=== PATIENT | male | born 1960 | race Caucasian/White ===

== ENCOUNTER 2016-09-30 08:01 | Day surgery (SDC) | payer MEDICARE ==
--- NOTE | 2016-09-28 20:06 | HP ---
ADMITTING HISTORY AND PHYSICAL: DATE OF ADMISSION: 09/30/16 ADMITTING DIAGNOSES: 1. Calculus, right proximal ureter. 2. Right hydronephrosis. 3. Bilateral renal calculi. PLANNED PROCEDURE: Right ureteroscopy, possible laser, and stent insertion ( possibly to be followed in near future by lithotripsy). SURGEON: Dr. Pizano. ADMITTING HISTORY AND PHYSICAL: Homar Parra is a 56-year-old gentleman with a history of renal calculi. He had been evaluated a few months ago for an episode of gross hematuria, but workup at that time had been unremarkable. He recently came in and had a renal sonogram, which revealed a 9-mm calculus in the proximal right ureter with mild right hydronephrosis. In addition, he has bilateral renal calculi. PAST MEDICAL HISTORY: Significant for: 1. Recurrent renal calculi. 2. Hypertension. 3. Chronic back and neck pain. 4. Gastroesophageal reflux. MEDICATIONS ON ADMISSION: 1. Amlodipine 10 mg daily. 2. Lisinopril 10 mg daily. 3. Apriso 0.375 g, 1.5 g daily. 4. Robaxin 750 mg up to two times daily as needed for neck pain. 5. Omeprazole 1 capsule daily. 6. Oxycodone 1 tablet every 4 hours as needed p.r.n. for pain. 7. Protonix 20 mg 2 tablets daily. 8. Zoloft 50 mg daily. 9. Trazodone 50 mg at bedtime daily. ALLERGIES: No known drug allergies. PHYSICAL EXAMINATION GENERAL: Reveals a pleasant middle-aged gentleman. VITAL SIGNS: Blood pressure is 140/98, pulse 72 per minute, oxygen saturation 94%, temperature 96.4. LUNGS: Clear bilaterally. CARDIOVASCULAR: Regular rate and rhythm. S1 and S2. ABDOMEN: Soft with mild right flank tenderness. IMPRESSION: A 56-year-old gentleman with a 9-mm calculus in the right proximal ureter and bilateral renal calculi. PLAN: Planned procedure is right ureteroscopy, possible laser, and stent insertion (possibly to be followed in near future by lithotripsy). CC: Dr. Hardy Crespo; Dr. Junior Pizano * [id number]/[facility] #: [id number] [facility]
[~2016-09-30 08:01] MED LIST: Buffered Lidocaine 1% SYR 3ML* 3 ML/SYR SYRINGE INTRADERM ONE; Dexamethasone IV* 4 MG/ML 1 ML (4 MG) IV SLOW PU ONE; Dexamethasone IV* 4 MG/ML 1 ML (4 MG) ONE; Famotidine IV* 10 MG/ML 2 ML (20 mg) IV ONE; Famotidine IV* 10 MG/ML 2 ML (20 mg) ONE; HYDROmorphone INJ* 1 MG/ML CARPUJECT SYRINGE ONE; Iohexol 180 (CONTRAST) 10 ML SDV IV ONE; Midazolam* 1 MG/ML 2 ML VIAL (2 MG) ONE; cefTRIAXone(*) 2 GM ADDV.VIAL IVPB ONE; fentaNYL* 50 MCG/ML 2 ML VIAL (100 MCG VIAL) ONE
[2016-09-30] MEDS ORDERED: fentaNYL* 50 MCG/ML 2 ML VIAL (100 MCG VIAL) IV PRN (08:51)
[2016-09-30] MEDS ORDERED: DiMENhydriNATE IV* 50 MG/ML VIAL IV PUSH PRN (08:51)
[2016-09-30] MEDS ORDERED: Ondansetron INJ* 2 MG/ML VIAL IV PRN (08:51)
[2016-09-30] MEDS ORDERED: PROCHLORPERAZINE INJ 5 MG/ML 2 ML VIAL IV PRN (08:51)
[2016-09-30] MEDS ORDERED: fentaNYL* 50 MCG/ML 2 ML VIAL (100 MCG VIAL) ONE (09:25)
[2016-09-30] MEDS ORDERED: Propofol* 10 MG/ML 20 ML BTL IV PUSH ONE (09:32)
[2016-09-30] MEDS ORDERED: Ketorolac INJ* 30 MG/ML 1 ML VIAL ONE (09:32)
[2016-09-30] MEDS ORDERED: Ondansetron INJ* 2 MG/ML VIAL ONE (09:32)
[2016-09-30] MEDS ORDERED: Lidocaine 2% PF * 5 ML VIAL ONE (09:32)
--- NOTE | 2016-09-30 10:44 | RAD ---
INDICATION: Stent placement, lithotripsy COMPARISONS: None relevant TECHNIQUE: Fluoroscopy was provided for a retrograde pyelogram and stent placement. Total fluoroscopy time is: 11 seconds FINDINGS: Spot images demonstrate contrast within the renal collecting system which is mildly dilated. A ureteral stent is noted IMPRESSION: FLUOROSCOPY WAS PROVIDED FOR A RETROGRADE PYELOGRAM AND STENT PLACEMENT CPT II Codes: 6045F
[2016-09-30 11:14] VITALS: BP 134/97
--- NOTE | 2016-09-30 11:54 | RAD ---
INDICATION: Postop stent placement. COMPARISON: Comparison is made with prior KUB from September 28, 2016. TECHNIQUE: Frontal supine films of the abdomen were obtained. FINDINGS: The small bowel and colon appear nondistended. There is a double-J stent catheter present on the right side which demonstrates normal course. There are calcific densities which project over both kidneys most consistent with renal calculi. IMPRESSION: STATUS POST DOUBLE-J STENT CATHETER PLACEMENT, BILATERAL RENAL CALCULI.
--- NOTE | 2016-10-01 01:29 | OP ---
DATE OF OPERATION: 09/30/16 - [facility] DATE OF : [birth year] - AGE: 56 years, male. SURGEON: Junior Pizano MD ANESTHESIOLOGIST: Dr. Shoemaker. ANESTHESIA: General. PRE-OP DIAGNOSES: 1. Right hydronephrosis. 2. Obstructing calculus, right proximal ureter. POST-OP DIAGNOSES: 1. Right hydronephrosis. 2. Obstructing calculus, right proximal ureter. OPERATIVE PROCEDURES: 1. Cystoscopy. 2. Right retrograde pyelogram. 3. Right ureteroscopy and pyeloscopy. 4. Laser lithotripsy of right ureteral calculus. 5. Right stent insertion. INDICATIONS: Homar Parra is a 56-year-old gentleman with a history of recurrent renal and ureteral calculi. He was recently evaluated and noted to have an approximately 9 mm obstructing calculus in the right proximal ureter. COMPLICATIONS: None. STENT USED: 7-Estonian stent, right ureter. OPERATIVE FINDINGS: Large obstructing calculus, right proximal ureter with right hydronephrosis. POSTOPERATIVE CONDITION: Stable. DESCRIPTION OF PROCEDURE: After induction of general anesthesia, the patient was placed in dorsal lithotomy position, sequential compression devices were in place and functioning. Initial cystoscopy revealed a normal-appearing urethra, mildly enlarged prostate and a trabeculated, but otherwise normal appearing bladder. A guidewire was introduced into the right ureter. Right retrograde pyelogram revealed right hydronephrosis. A 6-Estonian semirigid ureteroscope was introduced and advanced under direct vision. The entire distal, mid, and proximal ureter were visualized in the proximal ureter just below the ureteropelvic junction. A large, sharp edged calculus was noted to be impacted. This was carefully dislodged proximally and there was a fair amount of edema and inflammation at the site of impaction. The calculus was moved up into the area of the renal pelvis and using a 550 micron holmium laser, this was successfully fragmented into multiple pieces. Pyeloscopy was then performed. The intrarenal collecting system was significantly dilated because of the obstruction, but was otherwise unremarkable. The patient does have additional known renal calculi, which will probably require lithotripsy at a later date. A few of the stone fragments that were sizeable were removed and sent for analysis. A 7-Estonian stent was introduced and positioned under fluoroscopy with good proximal and distal positioning obtained. The bladder was emptied, the patient tolerated the procedure satisfactorily and was transferred back to the recovery area in stable condition. CC: Hardy Crespo MD; Junior Pizano MD* [id number]/[facility] #: [id number] M[facility]
== END 2016-09-30 11:40 | disposition home or self-care (01) ==
LOC: OR 08:01
PROVIDERS: ATTEND Urology
DX: N13.2 Hydronephrosis with renal and ureteral calculous obstruction (principal); I10 Essential (primary) hypertension
CPT/HCPCS: 36415; 74000; 74420; 82365; 86703; 86803; 88300; C1876; J0696; J1100; J1170; J1885; J2250; J2405; J2704; J3010

== ENCOUNTER 2016-10-05 12:56 | Day surgery (SDC) | payer MEDICARE ==
[~2016-10-05 12:56] MED LIST changes: -Dexamethasone IV* 4 MG/ML 1 ML (4 MG) IV SLOW PU ONE; -Dexamethasone IV* 4 MG/ML 1 ML (4 MG) ONE; -Famotidine IV* 10 MG/ML 2 ML (20 mg) ONE; -HYDROmorphone INJ* 1 MG/ML CARPUJECT SYRINGE ONE; -Iohexol 180 (CONTRAST) 10 ML SDV IV ONE; -Midazolam* 1 MG/ML 2 ML VIAL (2 MG) ONE; -cefTRIAXone(*) 2 GM ADDV.VIAL IVPB ONE; -fentaNYL* 50 MCG/ML 2 ML VIAL (100 MCG VIAL) ONE
--- NOTE | 2016-10-05 13:24 | RAD ---
Indication: Renal calculi. Single view of the abdomen demonstrates right ureteral stent in place. Bowel gas pattern is unremarkable. Previously identified calcification in the right renal pelvis is not clearly identified. IMPRESSION: Calcifications overlying the lower pole of the right kidney is not clearly identified on the current study although bowel gas pattern appears to the right kidney.
[2016-10-05] MEDS ORDERED: Famotidine IV* 10 MG/ML 2 ML (20 mg) ONE (13:30)
[2016-10-05] MEDS ORDERED: cefTRIAXone(*) 2 GM ADDV.VIAL IVPB ONE ×2 (13:30→13:32)
[2016-10-05] MEDS ORDERED: fentaNYL* 50 MCG/ML 2 ML VIAL (100 MCG VIAL) ONE (15:25)
[2016-10-05] MEDS ORDERED: Ondansetron INJ* 2 MG/ML VIAL ONE (15:25)
[2016-10-05] MEDS ORDERED: Dexamethasone IV* 4 MG/ML 1 ML (4 MG) ONE (15:25)
[2016-10-05] MEDS ORDERED: Midazolam* 1 MG/ML 5 ML VIAL (5 MG) ONE (15:25)
[2016-10-05] MEDS ORDERED: Ketorolac INJ* 30 MG/ML 1 ML VIAL ONE (15:25)
[2016-10-05] MEDS ORDERED: Propofol* 10 MG/ML 20 ML BTL IV PUSH ONE (15:25)
[2016-10-05] MEDS ORDERED: Lidocaine 2% PF * 5 ML VIAL ONE (15:29)
[2016-10-05] MEDS ORDERED: KETAMINE HCL* 50 MG/ML 10 ML VIAL ONE (15:59)
[2016-10-05] MEDS ORDERED: Ondansetron INJ* 2 MG/ML VIAL IV PRN (16:22)
[2016-10-05] MEDS ORDERED: HYDROmorphone INJ* 1 MG/ML CARPUJECT SYRINGE IV PRN (16:22)
[2016-10-05] MEDS ORDERED: oxyCODONE/Acetamin 5/325 MG* TAB PO PRN (16:22)
[2016-10-05] MEDS ORDERED: fentaNYL* 50 MCG/ML 2 ML VIAL (100 MCG VIAL) IV PRN (16:22)
[2016-10-05 18:13] VITALS: BP 125/93
--- NOTE | 2016-10-06 08:56 | OP ---
DATE OF OPERATION: 10/05/16 - [facility] DATE OF : 56 - AGE: 56 years, Male. SURGEON: Junior Pizano MD ANESTHESIOLOGIST: Dr. Shaw. ANESTHESIA: General. PRE-OP DIAGNOSES: 1. Right flank pain. 2. Right renal calculi. POST-OP DIAGNOSES: 1. Right flank pain. 2. Right renal calculi. OPERATIVE PROCEDURE: 1. Cystoscopy. 2. Right stent removal. COMPLICATIONS: None. POSTOPERATIVE CONDITION: Stable. INDICATIONS: Homar Parra is a 56-year-old gentleman who had been evaluated and noted to have a large obstructing calculus in the right proximal ureter and additional right renal calculi. He had undergone laser lithotripsy and right stent insertion. Postoperative x-ray had revealed what appeared to be multiple right renal calculi. DESCRIPTION OF PROCEDURE: After induction of general anesthesia, the patient was placed on the lithotripsy table in the supine position. Fluoroscopy was performed. I could not see any evidence of any radiopaque calculi overlying the area of the right kidney. After thorough look, I decided to go ahead and proceed with the right stent removal, as the patient was on anesthesia and as I did not visualize any remaining calculi, which I suspect had been fragmented at the time of the laser lithotripsy. The patient was placed in the dorsal lithotomy position, external genitalia was prepped and draped in the usual sterile fashion. Cystoscopy was performed. The urethra appeared normal. The prostate was mildly enlarged. The bladder was examined. The stent was seen exiting from the right orifice and was grasped and removed intact without difficulty. The bladder was emptied. The patient tolerated the procedure satisfactorily and was transferred back to the recovery area in stable condition. [id number]/[facility] #: [id number] [facility]D
== END 2016-10-05 17:55 | disposition home or self-care (01) ==
LOC: OR 12:56
PROVIDERS: ATTEND Urology
DX: N20.1 Calculus of ureter (principal); I10 Essential (primary) hypertension; K51.90 Ulcerative colitis, unspecified, without complications
CPT/HCPCS: 74000; J0696; J1100; J1885; J2250; J2405; J2704; J3010

== ENCOUNTER → 2017-01-06 05:31 | Emergency (ER) | payer MEDICARE ==
[~2017-01-06 05:31] MED LIST changes: -Buffered Lidocaine 1% SYR 3ML* 3 ML/SYR SYRINGE INTRADERM ONE; -Famotidine IV* 10 MG/ML 2 ML (20 mg) IV ONE; +Ketorolac INJ* 30 MG/ML 1 ML VIAL IV ONE; +NS 0.9% 1000 ML* 1,000 ML IV ONE; +Ondansetron INJ* 2 MG/ML VIAL IV ONE
[2017-01-06 06:16] LABS: Hematocrit 47 % (42-52); Mean Corpuscular HGB Conc 34 g/dl (31-36); Mean Corpuscular Hemoglobin 30 pg (27-31); Mean Corpuscular Volume 89 fL (80-94); Mean Platelet Volume 9 um3 (7.4-10.4); Red Blood Count 5.33 10^6/ul (4.0-5.4); Red Cell Distribution Width 13 % (10.5-15); White Blood Count 14.8 10^3/ul (3.5-10.8)
[2017-01-06 06:27] LABS: Albumin 4.4 g/dL (3.2-5.2); BUN/Creatinine Ratio 16.7 (8-20); Calcium 9.7 mg/dL (8.6-10.3); EGFR African American 84.9 (>60); Globulin 2.7 g/dL (2-4); Total Bilirubin 0.8 mg/dL (0.2-1.0); Total Protein 7.1 g/dL (6.4-8.9)
--- NOTE | 2017-01-06 06:30 | ED ---
Hipolito Maguire Benjamin, scribed for Kenneth Valenzuela MD on 01/06/17 at 0614 . Abdominal Pain/Male - HPI Summary HPI Summary: 56yo male c/o severe left flank pain since yesterday night. Pt also reports nausea and vomiting. Pt has prior hx of several kidney stones.Haven't tried anything for the pain [employer]. - History of Current Complaint Chief Complaint: EDFlankPain Stated Complaint: LEFT FLANK PAIN Time Seen by Provider: 01/06/17 06:02 Hx Obtained From: Patient Onset/Duration: Sudden Onset, Lasting Hours, Still Present Timing: Constant Severity Initially: Severe Severity Currently: Severe Pain Intensity: 10 Pain Scale Used: 0-10 Numeric Location: Flank - left Radiates: Yes Radiates to: LLQ Aggravating Factor(s): Nothing Alleviating Factor(s): Nothing Associated Signs And Symptoms: Positive: Back Pain, Nausea, Vomiting - Allergies/Home Medications Allergies/Adverse Reactions: Allergies Allergy/AdvReac Type Severity Reaction Status Date / Time Meloxicam AdvReac Rash Verified 12/14/16 09:02 PMH/Surg Hx/FS Hx/Imm Hx Endocrine/Hematology History: Denies: Hx Diabetes Cardiovascular History: Reports: Hx Hypertension - BORDERLINE Denies: Hx Pacemaker/ICD Respiratory History: Reports: Other Respiratory Problems/Disorders - chronic cough GI History: Reports: Hx Hiatal Hernia, Other GI Disorders - ulcerative colitis History: Reports: Hx Kidney Stones - RT SEPTEMBER 2016. LT OCTOBER 2016. Denies: Hx Renal Disease Musculoskeletal History: Reports: Hx Arthritis, Hx Bursitis - right knee, Other Musculoskeletal History - chronic neck pain Sensory History: Reports: Hx Contacts or Glasses - READING GLASSES Denies: Hx Hearing Aid Opthamlomology History: Reports: Hx Contacts or Glasses - READING GLASSES Neurological History: Reports: Hx Headaches, Hx Migraine - ONCE A WEEK TO TWICE A WEEK Psychiatric History: Denies: Hx Panic Disorder - Surgical History Surgery Procedure, Year, and Place: Neck surgery 2003-Dr. Valle. 09/2013 PARATHYROIDECTOMY, [place]. KIDNEY STONES-ESWL - SEVERAL TIMES, [facility]. 1989 LEFT KNEE ARTHROSCOPY, [facility]. GALLBLADDER - OCTOBER 2013. Rt SHOULDER -12/27. CSP - Rt C5-6 HEMILAMINOTOMY & FORAMINOTOMY Hx Anesthesia Reactions: No - Immunization History Date of Tetanus Vaccine: unknown Infectious Disease History: No Infectious Disease History: Reports: Hx Hepatitis - ON MEDICATION, Hx Tuberculosis Denies: Traveled Outside the [place] in Last 30 Days - Family History Known Family History: Positive: Diabetes - Social History Alcohol Use: None Substance Use Type: Reports: None Substance Use Comment - Amount & Last Used: occassionally Smoking Status (MU): Never Smoked Tobacco Amount Used/How Often: A TEENAGER Have You Smoked in the Last Year: No Review of Systems Constitutional: Negative Eyes: Negative ENT: Negative Cardiovascular: Negative Positive: Vomiting, Nausea Positive: flank pain - left Musculoskeletal: Negative Skin: Negative Neurological: Negative Psychological: Normal All Other Systems Reviewed And Are Negative: Yes Physical Exam Triage Information Reviewed: Yes Vital Signs On Initial Exam: Initial Vitals Temp Pulse Resp BP Pulse Ox 98 F 107 20 166/120 95 01/06/17 05:34 01/06/17 05:34 01/06/17 05:34 01/06/17 05:34 01/06/17 05:34 Vital Signs Reviewed: Yes Appearance: Positive: Well-Appearing, Pain Distress - mild discomfort Skin: Positive: Warm Head/Face: Positive: Normal Head/Face Inspection Eyes: Positive: KRISTAN ENT: Positive: Hearing grossly normal Neck: Positive: Supple Respiratory/Lung Sounds: Positive: Clear to Auscultation, Breath Sounds Present Cardiovascular: Positive: RRR Abdomen Description: Positive: Nontender, No Organomegaly, Soft. Negative: CVA Tenderness (R), CVA Tenderness (L) Bowel Sounds: Positive: Present Musculoskeletal: Positive: Strength/ROM Intact Neurological: Positive: Alert, Oriented to Person Place, Time Psychiatric: Positive: Affect/Mood Appropriate - Kael Coma Scale Coma Scale Total: 15 Diagnostics - Vital Signs Vital Signs Temp Pulse Resp BP Pulse Ox 01/06/17 05:34 98 F 107 20 166/120 95 - Laboratory Lab Results: Lab Results 01/06/17 01/06/17 Range/Units 05:47 05:47 WBC 14.8 H (3.5-10.8) 10^3/ul RBC 5.33 (4.0-5.4) 10^6/ul Hgb 16.0 (14.0-18.0) g/dl Hct 47 (42-52) % MCV 89 (80-94) fL MCH 30 (27-31) pg MCHC 34 (31-36) g/dl RDW 13 (10.5-15) % Plt Count 251 (150-450) 10^3/ul MPV 9 (7.4-10.4) um3 Neut % (Auto) 68.3 (38-83) % Lymph % (Auto) 19.3 L (25-47) % Hayes % (Auto) 8.0 (1-9) % Eos % (Auto) 3.3 (0-6) % Baso % (Auto) 1.1 (0-2) % Absolute Neuts (auto) 10.1 H (1.5-7.7) 10^3/ul Absolute Lymphs (auto) 2.9 (1.0-4.8) 10^3/ul Absolute Monos (auto) 1.2 H (0-0.8) 10^3/ul Absolute Eos (auto) 0.5 (0-0.6) 10^3/ul Absolute Basos (auto) 0.2 (0-0.2) 10^3/ul Absolute Nucleated RBC 0.01 10^3/ul Nucleated RBC % 0.1 Sodium 135 (133-145) mmol/L Potassium 4.0 (3.5-5.0) mmol/L Chloride 104 (101-111) mmol/L Carbon Dioxide 23 (22-32) mmol/L Anion Gap 8 (2-11) mmol/L BUN 19 (6-24) mg/dL Creatinine 1.14 (0.67-1.17) mg/dL Est GFR ( Amer) 84.9 (>60) Est GFR (Non-Af Amer) 66.0 (>60) BUN/Creatinine Ratio 16.7 (8-20) Glucose 159 H (70-100) mg/dL Calcium 9.7 (8.6-10.3) mg/dL Total Bilirubin 0.80 (0.2-1.0) mg/dL AST 29 (13-39) U/L ALT 51 (7-52) U/L Alkaline Phosphatase 67 (34-104) U/L Total Protein 7.1 (6.4-8.9) g/dL Albumin 4.4 (3.2-5.2) g/dL Globulin 2.7 (2-4) g/dL Albumin/Globulin Ratio 1.6 (1-3) Lipase 23 (11.0-82.0) U/L Result Diagrams: 01/06/17 05:47 01/06/17 05:47 Lab Statement: Any lab studies that have been ordered have been reviewed, and results considered in the medical decision making process. Abdominal Pain Fem Course/Dx - Diagnoses Provider Diagnoses: Kidney stone Discharge - Discharge Plan Condition: Improved Disposition: HOME Prescriptions: Ketorolac TAB * [Toradol TAB *] 10 mg PO Q6H #9 tab Tamsulosin CAP* [Flomax CAP*] 0.4 mg PO DAILY #6 cap Patient Education Materials: Kidney Stones (ED) Referrals: Hardy Crespo MD [Primary Care Provider] - The documentation as recorded by the Hipolito stephens Benjamin accurately reflects the service I personally performed and the decisions made by , Kenneth Valenzuela MD.
--- NOTE | 2017-01-06 07:54 | RAD ---
CLINICAL HISTORY: Left flank pain COMPARISON: November 03, 2016 TECHNIQUE: Multiple contiguous axial CT scans were obtained of the abdomen and pelvis, without intravenous contrast enhancement. Coronal and sagittal multiplanar reformations are submitted for review. Oral contrast was not administered. FINDINGS: The study is limited by the lack of intravenous contrast. This limits evaluation of the solid organs and vasculature. LUNG BASES: The lung bases are clear. LIVER: The liver is diffusely low in attenuation compared to the spleen. There are no focal hepatic parenchymal masses. The liver is enlarged measuring 24 centers in long axis. BILE DUCTS: There is no intrahepatic or extrahepatic biliary dilatation. GALLBLADDER: The gallbladder is not visualized. Surgical clips are noted in the gallbladder fossa. PANCREAS: The pancreas is normal, without mass or ductal dilatation. SPLEEN: Normal in size and appearance. UPPER GI TRACT: Evaluation of the gastrointestinal tract is limited by incomplete gastric distention. There is a moderate-sized sliding hiatal hernia. SMALL BOWEL AND MESENTERY: The small bowel is normal in contour, course, and caliber. There is no obstruction or dilatation. COLON: The colon is normal in contour, course, caliber. There is no pericolonic inflammatory change. ADRENALS: Normal bilaterally. KIDNEYS: There is are multiple left renal calyceal stones, as well as a 0.3 cm left distal ureteral stone. There is edema of the left kidney with perinephric stranding and moderate hydronephrosis. Renal cysts are noted bilaterally BLADDER: The bladder is smooth in contour. PELVIC ORGANS: The prostate gland is normal. The seminal vesicles are symmetric. AORTA: The aorta is normal. IVC: Unremarkable LYMPH NODES: There is no lymphadenopathy by size criteria. ABDOMINAL WALL: There is no evidence for abdominal wall hernia. BONES AND SOFT TISSUES: Mild degenerative changes are noted OTHER: None IMPRESSION: 1. LEFT NEPHROLITHIASIS, INCLUDING A 0.3 CM DISTAL LEFT URETERAL STONE, WITH LEFT-SIDED HYDRONEPHROSIS AND PERINEPHRIC STRANDING 2. HEPATOMEGALY WITH FATTY INFILTRATION OF THE LIVER. 3. HIATAL HERNIA
[2017-01-06 09:43] LABS: Urine Bacteria Absent (Absent); Urine Bilirubin Negative (Negative); Urine Glucose Negative (Negative); Urine Nitrite Negative (Negative); Urine Sperm Present (Absent)
[2017-01-06 10:33] VITALS: BP 126/84
--- NOTE | 2017-01-07 07:24 | ED ---
IDuncan Aidan, scribed for Eddie Salcedo MD on 01/06/17 at 1000 . Progress - Progress Note Progress Note: This is a sign out from Dr. Valenzuela. We reviewed CT and urine results. The CT resulted showed the impression given below. His urine was contaminated. He currently does not have dysuria or urinary frequency. On examination, his abdomen was soft and non-tender with positive bowel sounds. He had no signs of pain. Therefore, we will discharge him home with instructions to follow up with his PCP and urology. The patient was given a script for Toradol and Flomax and instructed to return to the ED if pain increases or if he develops nausea, vomiting, fever, or chills. He is hemodynamically stable, alert, and oriented. ABDOMEN/PELVIS CT IMPRESSION: 1. LEFT NEPHROLITHIASIS, INCLUDING A 0.3 CM DISTAL LEFT URETERAL STONE, WITH LEFT-SIDED HYDRONEPHROSIS AND PERINEPHRIC STRANDING 2. HEPATOMEGALY WITH FATTY INFILTRATION OF THE LIVER. 3. HIATAL HERNIA The patient will be diagnosed with kidney stone and discharged home. Course/Dx - Diagnoses Provider Diagnoses: Kidney stone The documentation as recorded by the Duncan stephens Aidan accurately reflects the service I personally performed and the decisions made by Matias olvera Walter, MD.
== END | disposition home or self-care (01) ==
LOC: ED 05:31
DX: N20.0 Calculus of kidney (principal); Z87.442 Personal history of urinary calculi; K44.9 Diaphragmatic hernia without obstruction or gangrene; R10.32 Left lower quadrant pain; M54.9 Dorsalgia, unspecified; R11.2 Nausea with vomiting, unspecified; R03.0 Elevated blood-pressure reading, without diagnosis of hypertension; G43.909 Migraine, unspecified, not intractable, without status migrainosus; Z90.49 Acquired absence of other specified parts of digestive tract
CPT/HCPCS: 36415; 74176; 80053; 81003; 81015; 83690; 85025; 87086; 96374; 96375; 99283; J1885; J2405

== ENCOUNTER 2018-02-27 07:27 | Emergency (ER) | payer MEDICARE ==
[2018-02-27] MEDS ORDERED: cefTRIAXone VIAL(*) 1,000 MG VIAL IM ONE ×2 (07:42→07:57)
[2018-02-27] MEDS ORDERED: Lidocaine 1%* 5 ML VIAL INJ ONE (07:44)
[2018-02-27 08:05] VITALS: BP 155/98
--- NOTE | 2018-02-27 08:13 | ED ---
Throat Pain/Nasal Congestion - HPI Summary HPI Summary: Patient is a 57-year-old male presenting to the ED with complaint of right- sided dental pain associated with swelling. Denies history of such, however endorses fractured teeth throughout and states this particular tooth has been causing him some discomfort intermittently over the past several years. He has not made an appointment with a dentist for extraction. Denies any fevers, sweats, chills. States he has been feeling otherwise well. Pain is rated a 5 out of 10 in severity. - History of Current Complaint Chief Complaint: EDDentalPain Time Seen by Provider: 02/27/18 07:36 Hx Obtained From: Patient Onset/Duration: Sudden Onset Severity: Moderate - Epiglottits Risk Factors Epiglottis Risk Factors: Negative - Allergies/Home Medications Allergies/Adverse Reactions: Allergies Allergy/AdvReac Type Severity Reaction Status Date / Time meloxicam Allergy Rash Verified 02/27/18 07:49 PMH/Surg Hx/FS Hx/Imm Hx Previously Healthy: Yes Endocrine/Hematology History: Denies: Hx Diabetes Cardiovascular History: Reports: Hx Hypertension - on meds Denies: Hx Pacemaker/ICD, Other Cardiovascular Problems/Disorders Respiratory History: Denies: Other Respiratory Problems/Disorders GI History: Reports: Hx Hiatal Hernia, Other GI Disorders - ulcerative colitis History: Reports: Hx Kidney Stones - SINCE 16 YEARS OLD Denies: Hx Renal Disease, Other Problems/Disorders Musculoskeletal History: Reports: Hx Arthritis - arms, shoulders, Hx Bursitis - right knee, Other Musculoskeletal History - chronic neck pain Sensory History: Reports: Hx Contacts or Glasses - READING GLASSES Denies: Hx Hearing Aid Opthamlomology History: Reports: Hx Contacts or Glasses - READING GLASSES Neurological History: Reports: Hx Headaches, Hx Migraine - ONCE A WEEK TO TWICE A WEEK Denies: Other Neuro Impairments/Disorders Psychiatric History: Reports: Hx Anxiety - on meds Denies: Hx Panic Disorder - Surgical History Surgery Procedure, Year, and Place: Neck surgery 2003-Dr. Valle. 09/2013 PARATHYROIDECTOMY, [place]. KIDNEY STONES-ESWL - SEVERAL TIMES, [facility]. 1989 LEFT KNEE ARTHROSCOPY, [facility] [place]. GALLBLADDER - OCTOBER 2013. right index finger, 2014. Rt SHOULDER -12/27. CSP - Rt C5-6 HEMILAMINOTOMY & FORAMINOTOMY Hx Anesthesia Reactions: No - Immunization History Date of Tetanus Vaccine: unknown Hx Pertussis Vaccination: No Immunizations Up to Date: Unable to Obtain/Confirm Infectious Disease History: No Infectious Disease History: Reports: Hx Hepatitis - ON MEDICATION, Hx Tuberculosis Denies: Traveled Outside the [place] in Last 30 Days - Family History Known Family History: Positive: Diabetes - Social History Occupation: Employed Full-time Lives: With Family Alcohol Use: None Hx Substance Use: Yes Substance Use Type: Reports: Marijuana Substance Use Comment - Amount & Last Used: daily Smoking Status (MU): Never Smoked Tobacco Amount Used/How Often: A TEENAGER Have You Smoked in the Last Year: No Review of Systems Constitutional: Negative Negative: Fever, Chills, Fatigue, Skin Diaphoresis Positive: Dental Pain. Negative: Sore Throat, Ear Ache, Nasal Discharge Cardiovascular: Negative Respiratory: Negative Musculoskeletal: Negative Skin: Negative Neurological: Negative All Other Systems Reviewed And Are Negative: Yes Physical Exam Triage Information Reviewed: Yes Vital Signs On Initial Exam: Initial Vitals Temp Pulse Resp BP Pulse Ox 98.0 F 112 15 173/97 92 02/27/18 07:32 02/27/18 07:32 02/27/18 07:32 02/27/18 07:32 02/27/18 07:32 Vital Signs Reviewed: Yes Appearance: Positive: Well-Appearing, Well-Nourished Skin: Positive: Warm, Skin Color Reflects Adequate Perfusion Head/Face: Positive: Normal Head/Face Inspection Eyes: Positive: EOMI, KRISTAN, Conjunctiva Clear Dental: Positive: Gross Decay/Caries @ - throughout, Dental Fracture @ - throughout Neck: Positive: Supple Respiratory/Lung Sounds: Positive: Clear to Auscultation, Breath Sounds Present Cardiovascular: Positive: RRR, Pulses are Symmetrical in both Upper and Lower Extremities Musculoskeletal: Positive: Normal, Strength/ROM Intact Neurological: Positive: Speech Normal Psychiatric: Positive: Normal, Affect/Mood Appropriate Diagnostics - Vital Signs Vital Signs Temp Pulse Resp BP Pulse Ox 02/27/18 08:03 98.4 F 88 16 155/98 93 02/27/18 07:32 98.0 F 112 15 173/97 92 - Laboratory Lab Statement: Any lab studies that have been ordered have been reviewed, and results considered in the medical decision making process. EENT Course/Dx - Course Course Of Treatment: patient is evaluated for right-sided lower dental pain and swelling. Pain is most notably over the canine 29 tooth. Associated cheek swelling. No obvious periapical abscess. 1 g ceftriaxone IM given in the ED. Clindamycin 4 times daily 7 days as prescription. Patient understands to return for any worsening symptoms including trismus, fever, difficulty swallowing. - Differential Diagnoses Differential Diagnoses: Dental Abscess, Dental Caries, Odontogenic Pain, Periodontic Abscess, Periodontic Disease - Diagnoses Provider Diagnoses: Abscess, dental Discharge - Sign-Out/Discharge Documenting (check all that apply): Patient Departure - Discharge Plan Condition: Stable Disposition: HOME Prescriptions: Clindamycin Cap(NF) [Clindamycin Cap 300 mg Cap(NF)] 300 mg PO Q6H #28 cap Patient Education Materials: Dental Abscess (ED) Referrals: Hardy Crespo MD [Primary Care Provider] - Additional Instructions: Ibuprofen 600mg three times daily for swelling Clindamycin four times daily Follow up with dentist ROSI - Billing Disposition and Condition Condition: STABLE Disposition: Home
== END 2018-02-27 08:03 | disposition home or self-care (01) ==
LOC: ED 07:27
DX: K04.7 Periapical abscess without sinus (principal)
CPT/HCPCS: 96372; 99282; J0696

== ENCOUNTER 2018-03-22 11:50 | Inpatient (IN) | payer MEDICARE ==
[2018-03-22] MEDS ORDERED: NS 0.9% 1000 ML* 1,000 ML IV ONE (12:10)
[2018-03-22] MEDS ORDERED: Ondansetron INJ* 2 MG/ML VIAL IV ONE (12:10)
[2018-03-22] MEDS ORDERED: HYDROmorphone INJ* 2 MG/ML CARPUJECT SYRINGE IV SLOW PU ONE (12:10)
[2018-03-22 12:35] LABS: ABS Basophils 0.1 10^3/ul (0-0.2); ABS Eosinophils 0.1 10^3/ul (0-0.6); ABS Lymphocytes 0.6 10^3/ul (1.0-4.8); ABS Monocytes 0.8 10^3/ul (0-0.8); ABS Neutrophils 7.8 10^3/ul (1.5-7.7); ABS Nucleated RBC 0 10^3/ul; Hematocrit 45 % (42-52); Hemoglobin 15.7 g/dl (14.0-18.0); Lymphocyte % 6.9 % (25-47); Mean Corpuscular HGB Conc 35 g/dl (31-36); Mean Corpuscular Hemoglobin 30 pg (27-31); Mean Corpuscular Volume 86 fL (80-94); Mean Platelet Volume 8.7 um3 (7.4-10.4); Nucleated Red Blood Cells % 0.2; Platelet Count 239 10^3/ul (150-450); Red Cell Distribution Width 15 % (10.5-15); White Blood Count 9.4 10^3/ul (3.5-10.8)
[2018-03-22 12:46] LABS: INR 1.14 (0.77-1.02)
[2018-03-22 12:53] LABS: EGFR Non-African American 63.6 (>60)
[2018-03-22] MEDS ORDERED: Iohexol 300* (CONTRAST) 10 ML SDV IV ONE (13:04)
--- NOTE | 2018-03-22 13:47 | RAD ---
INDICATION: Diffuse abdominal pain. History of ulcerative colitis. History of urolithiasis. Post cholecystectomy. COMPARISON: January 06, 2017 CT TECHNIQUE: Multidetector CT images were obtained from the lung bases to the ischial tuberosities with 150 mL Omnipaque 300 IV contrast. No oral contrast administered. Multiplanar reformation. REPORT: VISUALIZED INFERIOR THORAX: Minimal bibasilar atelectasis. Moderate chronic hiatal hernia. LIVER / GALLBLADDER / PANCREAS / SPLEEN: The liver measures 23 cm cephalocaudal Borderline decreased density of the liver relative to the spleen favoring mild fatty infiltration. Focal fatty sparing at the terri hepatis. No suspicious focal liver lesions evident. Post cholecystectomy. Negative for biliary dilatation. Unremarkable pancreas. 15.3 cm cephalocaudal spleen increased from 13.2 cm previously. No focal splenic lesions evident. ALIMENTARY TRACT: Aside from the noted hiatal hernia the upper GI tract is unremarkable. Unremarkable small bowel loops, normal variant elongated appendix, and CT appearance of the colon. Moderate stool with air-fluid levels in the colon from the ascending segment through the descending segment. Negative for ascites, free air, or significant hernias. MESENTERIC: Unremarkable. ADRENAL / GENITOURINARY: Normal adrenal glands. Few bilateral renal cortical cysts. No suspicious focal renal lesions. Stones negative for hydronephrosis. At the LEFT renal pelvis and ureteropelvic junction with dominant 0.9 cm stone at the pelvis and 0.5 cm stone at the UPJ. Unremarkable nondilated ureters and partially distended urinary bladder. Coarse calcifications at the prostate. Symmetric seminal vesicles. RETROPERITONEAL: 1.0 cm short axis caval lymph node within normal size limits. Mildly enlarged 1.2 cm short axis celiac axis lymph node increase compared with the prior exam. VASCULAR: Negative for aortoiliac aneurysm. Physiologic distention of the IVC. BONES: Negative for suspicious osseous lesions. SOFT TISSUE: Unremarkable. IMPRESSION: #. Hepatosplenomegaly with interval increase in size of the spleen compared with the prior exam. Hepatosteatosis. #. Post cholecystectomy. #. Chronic moderate hiatal hernia without acute finding. #. No inflammatory change of the small bowel or colon evident. Normal appendix documented. #. Moderate stool with air-fluid levels in the colon from the ascending segment through the descending segment. Correlate for potential gastroenteritis. #. LEFT urolithiasis as noted. Negative for hydronephrosis. #. Mildly enlarged solitary celiac axis lymph node compared with the prior exam.
--- NOTE | 2018-03-22 15:18 | RAD ---
INDICATION: Elevated liver function tests. COMPARISON: Correlation is made with a prior CT of the abdomen and pelvis of the same date. TECHNIQUE: Multiple real-time images of the right upper quadrant were obtained. FINDINGS: The patient is status post cholecystectomy. No intra or extrahepatic ductal distention is present. The common bile duct measured 0.5 cm in diameter. The liver is mildly enlarged and increased in echogenicity which correlates with fatty infiltration on the prior CT study. No significant focal abnormality is seen. The pancreas is obscured by overlying bowel gas. The right kidney is normal in size without evidence for hydronephrosis. There are several small right renal cysts better seen on the prior CT study. IMPRESSION: 1. MILD HEPATOMEGALY AND FINDINGS CONSISTENT WITH FATTY INFILTRATION OF THE LIVER. 2. STATUS POST CHOLECYSTECTOMY.
--- NOTE | 2018-03-22 15:25 | ED ---
Abdominal Pain/Male - HPI Summary HPI Summary: Patient is a 58 y/o M w/ c/o lower abdominal pain + bloating, nausea the past couple of days. In the room, patient is dry heaving. He denies fever and blood in stools. Pain is rated 8/10 on triage and it is noted that sitting up aggravates Sx. He has no Hx of abdominal surgery. He denies diabetes and bowel obstruction. Last bowel movement was this morning and normal. He also reports some testicular pain yesterday. He denies smoking and drinking. Allergy to meloxicam is noted. He takes oxycodone for pain management. FMHx includes younger brother's due to pancreatic cancer. - History of Current Complaint Chief Complaint: EDAbdPain Stated Complaint: ABD PAIN/LEG CRAMPS Time Seen by Provider: 03/22/18 12:03 Hx Obtained From: Patient Onset/Duration: Lasting Days, Still Present Severity Currently: Severe - 8/10 Pain Intensity: 8 Pain Scale Used: 0-10 Numeric - 8/10 Location: Other - lower abdomen Associated Signs And Symptoms: Positive: Nausea, Other - abdominal bloating, testicular pain, dry heaving. Negative: Fever, Constipation, Blood in Stool - Allergies/Home Medications Allergies/Adverse Reactions: Allergies Allergy/AdvReac Type Severity Reaction Status Date / Time meloxicam Allergy Rash Verified 03/22/18 11:58 Home Medications: Home Medications Budesonide CAP(NF) 6 mg PO DAILY 03/22/18 [History Confirmed 03/22/18] L.acidoph,Paracasei, B.lactis [Probiotic] 1 cap PO DAILY 03/22/18 [History Confirmed 03/22/18] Lisinopril 5 mg PO DAILY 03/22/18 [History Confirmed 03/22/18] Sertraline* [Zoloft*] 100 mg PO BEDTIME 03/22/18 [History Confirmed 03/22/18] Sulfamethox/Trimethoprim DS* [Bactrim DS 800/160 TAB*] 1 tab PO BID 03/22/18 [ History Confirmed 03/22/18] amLODIPine TAB* [Norvasc 5 mg TAB*] 5 mg PO DAILY 03/22/18 [History Confirmed ] PMH/Surg Hx/FS Hx/Imm Hx Endocrine/Hematology History: Denies: Hx Diabetes Cardiovascular History: Reports: Hx Hypertension - on meds Denies: Hx Pacemaker/ICD, Other Cardiovascular Problems/Disorders Respiratory History: Denies: Other Respiratory Problems/Disorders GI History: Reports: Hx Hiatal Hernia, Other GI Disorders - ulcerative colitis History: Reports: Hx Kidney Stones - SINCE 16 YEARS OLD Denies: Hx Renal Disease, Other Problems/Disorders Musculoskeletal History: Reports: Hx Arthritis - arms, shoulders, Hx Bursitis - right knee, Other Musculoskeletal History - chronic neck pain Sensory History: Reports: Hx Contacts or Glasses - READING GLASSES Denies: Hx Hearing Aid Opthamlomology History: Reports: Hx Contacts or Glasses - READING GLASSES Neurological History: Reports: Hx Headaches, Hx Migraine - ONCE A WEEK TO TWICE A WEEK Denies: Other Neuro Impairments/Disorders Psychiatric History: Reports: Hx Anxiety - on meds Denies: Hx Panic Disorder - Surgical History Surgery Procedure, Year, and Place: Neck surgery 2003-Dr. Valle. 09/2013 [place]ATHYROIDECTOMY, [place]. [place] [facility] [place] [facility] [place] GALL[place] - OCTOBER 2013. right index finger, 2014. Rt SHOULDER -12/27. CSP - Rt C5-6 HEMILAMINOTOMY & FORAMINOTOMY Hx Anesthesia Reactions: No - Immunization History Date of Tetanus Vaccine: unknown Infectious Disease History: No Infectious Disease History: Reports: Hx Hepatitis - ON MEDICATION, Hx Tuberculosis Denies: Traveled Outside the [place] in Last 30 Days - Family History Known Family History: Positive: Diabetes - Social History Alcohol Use: None Hx Substance Use: Yes Substance Use Type: Reports: Marijuana Substance Use Comment - Amount & Last Used: daily Smoking Status (MU): Never Smoked Tobacco Amount Used/How Often: A TEENAGER Have You Smoked in the Last Year: No Review of Systems Negative: Fever Positive: Abdominal Pain - lower, Nausea, Other - NEGATIVE: constipation, blood in stool POSITIVE: dry heaving Positive: other - testicular pain All Other Systems Reviewed And Are Negative: Yes Physical Exam - Summary Physical Exam Summary: Appearance: Well appearing, mild-moderate pain distress. Skin: warm, dry, reflects adequate perfusion, no rash, no lesion Head/face: normal Eyes: EOMI, KRISTAN ENT: normal Neck: supple, non-tender Respiratory: CTA, breath sounds present Cardiovascular: tachycardic, pulses symmetrical Abdomen: diffuse abdominal tenderness, soft; all else normal Bowel Sounds: present Musculoskeletal: normal, strength/ROM intact Neuro: normal, sensory motor intact, A&Ox3 Triage Information Reviewed: Yes Vital Signs On Initial Exam: Initial Vitals Temp Pulse Resp BP Pulse Ox 98.4 F 139 20 142/88 95 03/22/18 11:53 03/22/18 11:53 03/22/18 11:53 03/22/18 11:53 03/22/18 11:53 Vital Signs Reviewed: Yes Diagnostics - Vital Signs Vital Signs Temp Pulse Resp BP Pulse Ox 03/22/18 12:27 19 03/22/18 11:53 98.4 F 139 20 142/88 95 - Laboratory Lab Results: Lab Results 03/22/18 03/22/18 03/22/18 Range/Units 12:18 12:18 12:18 WBC 9.4 (3.5-10.8) 10^3/ul RBC 5.30 (4.00-5.40) 10^6/ul Hgb 15.7 (14.0-18.0) g/dl Hct 45 (42-52) % MCV 86 (80-94) fL MCH 30 (27-31) pg MCHC 35 (31-36) g/dl RDW 15 (10.5-15) % Plt Count 239 (150-450) 10^3/ul MPV 8.7 (7.4-10.4) um3 Neut % (Auto) 83.1 H (38-83) % Lymph % (Auto) 6.9 L (25-47) % Bee % (Auto) 8.4 H (0-7) % Eos % (Auto) 1.0 (0-6) % Baso % (Auto) 0.6 (0-2) % Absolute Neuts (auto) 7.8 H (1.5-7.7) 10^3/ul Absolute Lymphs (auto) 0.6 L (1.0-4.8) 10^3/ul Absolute Monos (auto) 0.8 (0-0.8) 10^3/ul Absolute Eos (auto) 0.1 (0-0.6) 10^3/ul Absolute Basos (auto) 0.1 (0-0.2) 10^3/ul Absolute Nucleated RBC 0 10^3/ul Nucleated RBC % 0.2 INR (Anticoag Therapy) (0.77-1.02) Sodium 131 L (135-145) mmol/L Potassium 4.5 (3.5-5.0) mmol/L Chloride 100 L (101-111) mmol/L Carbon Dioxide 18 L (22-32) mmol/L Anion Gap 13 H (2-11) mmol/L BUN 19 (6-24) mg/dL Creatinine 1.17 (0.67-1.17) mg/dL Est GFR ( Amer) 76.9 (>60) Est GFR (Non-Af Amer) 63.6 (>60) BUN/Creatinine Ratio 16.2 (8-20) Glucose 183 H (70-100) mg/dL Lactic Acid 1.8 (0.5-2.0) mmol/L Calcium 9.5 (8.6-10.3) mg/dL Total Bilirubin 1.30 H (0.2-1.0) mg/dL AST 225 H (13-39) U/L ALT 291 H (7-52) U/L Alkaline Phosphatase 130 H (34-104) U/L Troponin I 0.00 (<0.04) ng/mL C-Reactive Protein 58.63 H (<8.01) mg/L Total Protein 7.7 (6.4-8.9) g/dL Albumin 4.4 (3.2-5.2) g/dL Globulin 3.3 (2-4) g/dL Albumin/Globulin Ratio 1.3 (1-3) Lipase < 10 L (11.0-82.0) U/L 03/22/18 Range/Units 12:19 WBC (3.5-10.8) 10^3/ul RBC (4.00-5.40) 10^6/ul Hgb (14.0-18.0) g/dl Hct (42-52) % MCV (80-94) fL MCH (27-31) pg MCHC (31-36) g/dl RDW (10.5-15) % Plt Count (150-450) 10^3/ul MPV (7.4-10.4) um3 Neut % (Auto) (38-83) % Lymph % (Auto) (25-47) % Bee % (Auto) (0-7) % Eos % (Auto) (0-6) % Baso % (Auto) (0-2) % Absolute Neuts (auto) (1.5-7.7) 10^3/ul Absolute Lymphs (auto) (1.0-4.8) 10^3/ul Absolute Monos (auto) (0-0.8) 10^3/ul Absolute Eos (auto) (0-0.6) 10^3/ul Absolute Basos (auto) (0-0.2) 10^3/ul Absolute Nucleated RBC 10^3/ul Nucleated RBC % INR (Anticoag Therapy) 1.14 H (0.77-1.02) Sodium (135-145) mmol/L Potassium (3.5-5.0) mmol/L Chloride (101-111) mmol/L Carbon Dioxide (22-32) mmol/L Anion Gap (2-11) mmol/L BUN (6-24) mg/dL Creatinine (0.67-1.17) mg/dL Est GFR ( Amer) (>60) Est GFR (Non-Af Amer) (>60) BUN/Creatinine Ratio (8-20) Glucose (70-100) mg/dL Lactic Acid (0.5-2.0) mmol/L Calcium (8.6-10.3) mg/dL Total Bilirubin (0.2-1.0) mg/dL AST (13-39) U/L ALT (7-52) U/L Alkaline Phosphatase (34-104) U/L Troponin I (<0.04) ng/mL C-Reactive Protein (<8.01) mg/L Total Protein (6.4-8.9) g/dL Albumin (3.2-5.2) g/dL Globulin (2-4) g/dL Albumin/Globulin Ratio (1-3) Lipase (11.0-82.0) U/L Result Diagrams: 03/22/18 12:18 03/22/18 12:18 Lab Statement: Any lab studies that have been ordered have been reviewed, and results considered in the medical decision making process. - CT CT abd/pel CT Interpretation: Positive (See Comments) CT Interpretation Completed By: Radiologist - #. Hepatosplenomegaly with interval increase in size of the spleen compared with the prior exam. Hepatosteatosis. #. Post cholecystectomy. #. Chronic moderate hiatal hernia without acute finding. #. No inflammatory change of the small bowel or colon evident. Normal appendix documented. #. Moderate stool with air-fluid levels in the colon from the ascending segment through the descending segment. Correlate for potential gastroenteritis. #. LEFT urolithiasis as noted. Negative for hydronephrosis. # Mildly enlarged solitary celiac axis lymph compared with the prior exam. This report was reviewed by ED physician. - Ultrasound No standard instances Ultrasound Interpretation: Positive (See Comments) Ultrasound Interpretation Completed By: Radiologist - Liver US: mild hepatomegaly and findings consistent with fatty infiltration of the liver. status post cholecystectomy. this report was reviewed by ED physician. - EKG 1227 Cardiac Rate: Tachycardia - rate of 127 bpm EKG Rhythm: Sinus Tachycardia ST Segment: Non-Specific EKG Interpretation: normal axis Re-Evaluation - Re-Evaluation First Eval Re-Evaluation Time: 14:01 Change: Improved Comment: Patient states abdominal pain has resolved slightly. [place] [facility] [place] Patient is agreeable with this plan. Abdominal Pain Fem Course/Dx - Course Course Of Treatment: Patient with history of ulcerative colitis presents with generalized abdominal pain. There is no blood in the stools. He has elevated WBC and liver enzymes. His liver enzymes have never been elevated thus far. A liver ultrasound was performed. CT scan shows no obvious acute pathology. There is fatty obliteration of the liver seen on CT, ultrasound but no biliary duct dilation. Given his degree of discomfort was elected that he be admitted for observation. Hospitalist team was contacted and they will evaluate and admit. - Diagnoses Differential Diagnosis/HQI/PQRI: Other - Diverticulitis, flare of ulcerative colitis, bowel obstruction, perforation, constipation, pancreatitis Provider Diagnoses: Acute abdominal pain, Acute hepatitis, Hx of ulcerative colitis - Provider Notifications Discussed Care Of Patient With: Shanell Foster Time Discussed With Above Provider: 14:51 Instructed by Provider To: Other - Hospitalist was busy and did not call back until this time at 1451. Patient's case was discussed with Dr. Foster, she agrees to accept patient for admission [place] [facility] [place] Discharge - Sign-Out/Discharge Documenting (check all that apply): Patient Departure - admit - Discharge Plan Condition: Fair Disposition: ADMITTED TO [facility] - Billing Disposition and Condition Condition: FAIR Disposition: Admitted to [facility] - Attestation Statements Document Initiated by Nataliaibvicki: Yes Documenting Scribe: Robert Neville Provider For Whom Ho is Documenting (Include Credential): Domenic Pond MD Scribe Attestation: I, Robert Neville, scribed for Domenic Pond MD on 03/22/18 at 1755. Scribe Documentation Reviewed: Yes Provider Attestation: The documentation as recorded by the Robert stephens accurately reflects the service I personally performed and the decisions made by me, Domenic Pond MD
[2018-03-22] MEDS ORDERED: Cyclobenzaprine TAB* 10 MG PO PRN (16:42)
[2018-03-22] MEDS: HYDROmorphone INJ1* 1 MG/ML SYRINGE IV SLOW PU PRN ×2 (16:58→21:02)
[2018-03-22] MEDS: NS 0.9% 1000 ML* 1,000 ML IV SCH (16:59)
[2018-03-22] MEDS: Sertraline* 100 MG TAB PO SCH (20:44)
[2018-03-22] MEDS: Gabapentin CAP(*) 400 MG PO SCH (20:46)
[2018-03-22] MEDS: Heparin VIAL(*) 5000 UNITS/ML VIAL (FIVE THOUSAND) SUBCUT SCH (20:47)
[2018-03-22] MEDS: Ondansetron INJ* 2 MG/ML VIAL IV PRN (20:50)
--- NOTE | 2018-03-22 21:24 | HP ---
CC: Dr. Hardy Crespo * HISTORY AND PHYSICAL: DATE OF ADMISSION: 03/22/18 PRIMARY CARE PROVIDER: Dr. Hardy Crespo. ATTENDING PHYSICIAN: Dr. Shanell Cherry * (dictated by Pam Allred NP). CHIEF COMPLAINT: Abdominal pain with nausea and vomiting. HISTORY OF PRESENT ILLNESS: Mr. Parra is a 58-year-old male with past medical history significant for ulcerative colitis, renal calculi, chronic neck and back pain, hypertension, and hiatal hernia who states that he initially developed abdominal discomfort Wednesday evening. He noticed that the pain was worse when he was sitting, but if he was able to lay back, the pain improved. He states that he underwent a procedure with Urology on 03/17/18, at which time he was told he had "red spots" in his bladder and was started on antibiotics. The patient states that the lower abdominal pain became worse this morning after it had initially improved last evening when he went to bed. He denies fever and chills, but reports diaphoresis. He denies chest pain or shortness of breath. He reports intermittent diarrhea. He denies urinary symptoms such as urgency, frequency, or burning. He states he has not had a colonoscopy in the past, but he is scheduled to have one done in April. He has also had persistent dry heaves and due to his symptoms not improving, he presented to the emergency room for further evaluation. While in the emergency room, he underwent abdomen and pelvis CT scan showing hepatosplenomegaly with interval increase in size of the spleen compared to prior exam, hepatic steatosis, postcholecystectomy, chronic hiatal hernia without acute findings, moderate stool with air-filled levels in the colon, left ureterolysis. No hydronephrosis. He underwent a liver ultrasound showing mild hepatomegaly and findings consistent with fatty infiltration of the liver, status post cholecystectomy. He had an EKG without significant findings. He had labs showing mild hyponatremia with a sodium of 130. He had an EKG without significant findings. He was also noted to have transaminitis and the hospitalists were asked to evaluate him for admission. PAST MEDICAL HISTORY: 1. Ulcerative colitis. 2. Renal calculi. 3. Chronic neck and back pain. 4. Hypertension. 5. Hiatal hernia. PAST SURGICAL HISTORY: 1. Status post right trigger finger release. 2. Status post right shoulder surgery. 3. status post neck surgery. 4. Status post parathyroidectomy. 5. Status post left knee arthroscopy. 6. Status post cholecystectomy. MEDICATIONS: Home medications include: 1. Bactrim DS 800/160 one tablet oral twice daily, started 03/17 for 10 days. 2. Mesalamine 1.5 g oral daily. 3. Amlodipine 5 mg oral daily. 4. Lisinopril 5 mg oral daily. 5. Probiotic 1 capsule oral daily. 6. Budesonide 6 mg oral daily. 7. Gabapentin 400 mg oral 3 times daily. 8. Flexeril 10 mg oral 3 times daily as needed for muscle spasms. 9. Oxycodone 10 mg oral every 6 hours as needed for pain. 10. Omeprazole 20 mg oral daily. 11. Zoloft 100 mg oral daily at bedtime. ALLERGIES: MELOXICAM causes a rash. FAMILY HISTORY: The patient denies any family history of coronary artery disease. His mother has a history of diabetes mellitus and his younger brother passed from pancreatic cancer. SOCIAL HISTORY: He is a former smoker smoking when he was a teenager. He reports abstaining from alcohol use for the last 4 years since he was diagnosed with ulcerative colitis. He smokes marijuana occasionally to daily. His daughter, Lorna Parra, will be his surrogate decision maker in the event he is unable to make decisions for himself. REVIEW OF SYSTEMS: I performed an 11-point review of systems. All the pertinent positives and negatives are mentioned in the history of present illness. The remaining review of systems is negative. PHYSICAL EXAMINATION GENERAL APPEARANCE: The patient is alert, pleasant, and appears to be in no acute distress. VITAL SIGNS: Temperature 98.4, heart rate 139, respiratory rate 20, O2 sat 95% on room air, blood pressure 142/88. HEENT: Normocephalic, atraumatic. Pupils are equal and reactive to light. Extraocular movements are intact. RESPIRATORY: There is no accessory muscle use. The lungs are clear to auscultation bilateral. CARDIOVASCULAR: Regular rate and rhythm. S1 and S2 present. He is tachycardic. ABDOMEN: Soft with diffuse tenderness. Nondistended. There are present bowel sounds. EXTREMITIES: There is no lower extremity edema. DP and PT pulses are 1+ and symmetric. MUSCULOSKELETAL: There is no clubbing or cyanosis noted. The patient exhibits good strength in all extremities. NEUROLOGICAL: The patient is alert and oriented x4. Cranial nerves II through XII are grossly intact. PSYCHOLOGICAL: The patient is calm and cooperative. SKIN: There are no rashes or abnormalities seen. DIAGNOSTIC STUDIES/LAB DATA: Sodium 131, potassium 4.5, chloride 100, CO2 of 18, BUN 19, creatinine 1.17, glucose 183. White blood cell count 9.4, hemoglobin 15.7, hematocrit 45, platelet count 239. Alk phos 130, AST 225, ALT 291, total bilirubin 1.30. Troponin 0.00. CRP 58.63. EKG shows a sinus tachycardia and rate of 127. There are no acute signs of ischemia. This EKG is similar to previous EKG from 04/17/14. Abdomen and pelvis CT from today. Radiologist's impression: Hepatosplenomegaly with interval increase in size of the spleen compared with prior exam. Hepatic steatosis. Post cholecystectomy. Chronic moderate hiatal hernia without acute finding. No inflammatory change of the small bowel or colon evident. Normal appendix documented. Moderate stool with air-fluid levels in the colon from the ascending segment to the descending segment. Correlate for potential gastritis. Left ureterolysis is noted. Negative for hydronephrosis. Mildly enlarged solitary celiac axial lymph node compared with prior exam. Liver ultrasound from today. Radiologist's impression: Mild hepatomegaly and findings consistent with fatty infiltration of the liver. Status post cholecystectomy. IMPRESSION: Mr. Parra is a 58-year-old male with past medical history significant for ulcerative colitis, renal calculi, chronic neck and back pain, hypertension, and hiatal hernia who presented to the emergency room with complaints of abdominal pain for 4 days with associated nausea and vomiting. He will be admitted as an observation. ASSESSMENT/PLAN: 1. Abdominal pain. I suspect this could be secondary to the Bactrim that the patient has been taking or possible viral gastritis. We will give him supportive care with IV fluids, pain medication, clear liquid diet. We are going to hold his Bactrim and he will have antiemetics as needed for nausea. 2. Transaminitis. This could be secondary to the Bactrim the patient has been on or also hepatitis. We will check a hepatitis panel. Additionally, this could be secondary to cirrhosis caused by his ulcerative colitis. We will check an antimitochondrial antibody. 3. Hypertension. The patient has been normotensive in the emergency room. I will continue him on his home lisinopril and amlodipine. 4. Tachycardia. I suspect this is secondary to the patient's pain. He did have improvement in his heart rate after pain medication. We will continue to monitor his heart rate. 5. Ulcerative colitis. We will continue the patient on his home mesalamine and budesonide. 6. Chronic pain. The patient will be continued on his home gabapentin, Flexeril as needed. 7. Fluids, electrolytes, and nutrition. He will have a clear liquid diet. 8. Code status. Full code. 9. DVT prophylaxis. He is a moderate risk and will have subcu heparin. 10. Disposition. Observation. TIME SPENT: Time for this admission was approximately 60 minutes, greater than half of that was spent with the patient discussing medications, past medical history, the events leading up to his arrival today, and performing a physical examination. The case has been reviewed with the attending, Dr. Cherry, who agrees with the plan of care. Reviewed by AMARI HUGHES 03/26/18 1153 [id number]/[facility] #: [id number] [place]
[2018-03-23] MEDS: Acetaminophen TAB* 325 MG PO PRN ×2 (02:02→20:33)
[2018-03-23] MEDS: NS 0.9% 1000 ML* 1,000 ML IV SCH (02:05)
[2018-03-23] MEDS: Heparin VIAL(*) 5000 UNITS/ML VIAL (FIVE THOUSAND) SUBCUT SCH ×3 (05:54→20:38)
[2018-03-23 06:58] LABS: EGFR Non-African American 91.9 (>60)
[2018-03-23] MEDS: Ondansetron INJ* 2 MG/ML VIAL IV PRN ×2 (07:35→16:20)
[2018-03-23] MEDS: HYDROmorphone INJ1* 1 MG/ML SYRINGE IV SLOW PU PRN (07:35)
[2018-03-23] MEDS: Gabapentin CAP(*) 400 MG PO SCH ×5 (07:48→20:32)
[2018-03-23] MEDS: Lisinopril TAB* 10 MG PO SCH ×2 (07:48→08:41)
[2018-03-23] MEDS: Omeprazole CAP* 20 MG PO SCH ×2 (07:48→08:40)
[2018-03-23] MEDS: amLODIPine TAB* 5 MG PO SCH ×2 (07:48→08:40)
[2018-03-23] MEDS: CMCS: Budesonide CAP(NF) 3 MG PO SCH ×2 (07:49→08:40)
[2018-03-23 08:30] LABS: Urine Appearance Clear; Urine Blood 3+ (Negative); Urine Color Yellow; Urine Ketones 1+ (Negative); Urine Protein 1+(30 mg/dL) (Negative); Urine Red Blood Cell 3+(>10/hpf) (Absent); Urine Specific Gravity 1.024 (1.010-1.030); Urine Urobilinogen Negative (Negative); Urine White Blood Cell Absent (Absent)
[2018-03-23] MEDS ORDERED: MESALAMINE 0.375 GM PO SCH (09:00)
[2018-03-23] MEDS ORDERED: Buffered Lidocaine 0.9% SYRIN* 5 ML/SYR SYRINGE INTRADERM ONE (09:49)
[2018-03-23] MEDS ORDERED: Midazolam* 1 MG/ML 2 ML VIAL (2 MG) ONE (10:32)
[2018-03-23] MEDS ORDERED: Lidocaine 2% PF * 5 ML VIAL ONE (10:32)
[2018-03-23] MEDS ORDERED: Propofol* 10 MG/ML 20 ML BTL IV PUSH ONE (10:32)
[2018-03-23] MEDS ORDERED: fentaNYL* 50 MCG/ML 2 ML VIAL (100 MCG VIAL) ONE (10:32)
[2018-03-23] MEDS ORDERED: Iohexol 180 (CONTRAST) 10 ML SDV IV ONE (10:35)
[2018-03-23] MEDS ORDERED: Phenylephrine INJ* 10 MG/ML 1 ML VIAL (10 MG) ONE (10:51)
[2018-03-23] MEDS ORDERED: HYDROmorphone INJ* 0.5 MG/0.5 ML SYRINGE IV PRN (11:00)
[2018-03-23] MEDS ORDERED: Gentamicin ADULT (*) 160 MG in NS 0.9% 100 ML* 100 ML IVPB ONE (11:00)
[2018-03-23] MEDS ORDERED: Acetaminophen IV 1GM/100ML * 1,000 MG/100 ML VIAL IVPB ONE (11:00)
[2018-03-23] MEDS ORDERED: Ondansetron ODT TAB* 4 MG PO PRN (11:00)
[2018-03-23] MEDS ORDERED: Naloxone* 0.4 MG/ML 1 ML VIAL IV PRN (11:00)
--- NOTE | 2018-03-23 13:06 | RAD ---
INDICATION: LEFT ureteropelvic junction stone. Cystoscopy and retrograde LEFT ureteral stent placement. Technique: 6 seconds of?fluoroscopy?was provided?for the physician proceduralist. REPORT: LEFT retrograde pyelogram is negative for hydronephrosis. LEFT ureteral stent placed. IMPRESSION: Procedural control films. CPT II Codes: G9500
[2018-03-23] MEDS ORDERED: NS 0.9% 500 ML* 500 ML IV ONE (14:59)
[2018-03-23] MEDS ORDERED: HYDROmorphone INJ* 0.5 MG/0.5 ML SYRINGE IV SLOW PU PRN (15:00)
[2018-03-23] MEDS ORDERED: HYDROmorphone INJ1* 1 MG/ML SYRINGE IV SLOW PU PRN (16:06)
--- NOTE | 2018-03-23 16:07 | PN ---
Subjective Date of Service: 03/23/18 Interval History: Pt seen and examined. Meds and labs reviewed. CC: 01/02 post op pain ROS: Denied ZAMORANO/dizziness, F/C, N/V, CP, SOB, increased cough, sputum production , abd pain, diarrhea, constipation, dysuria, throat pain, and new skin lesions. The rest of the 14 point ROS are unremarkable. PHYSICAL EXAM: GEN APPEARANCE: Awake, not in acute distress HEENT: NC/AT, PERRLA, moist oral mucosa, (-) throat erythema NECK: Soft, supple, (-) cervical LAD, (-)JVD HEART: S1S2 WNL, RRR, No MRG CHEST: CTA, BL, GAE, No W/R/R ABD: Soft, ND/NT, NABS 4x Q EXT: No C/C/E SKIN: Warm to touch PSYCH: No active psychosis, hallucinations, depression, SI/HI Objective Active Medications: Acetaminophen (Tylenol Tab*) 650 mg PO Q6H PRN PRN Reason: PAIN Last Admin: 03/23/18 02:02 Dose: 650 mg Amlodipine Besylate (Norvasc Tab*) 5 mg PO DAILY [facility] Last Admin: 03/23/18 08:40 Dose: Not Given Budesonide (Budesonide Cap(Nf)) 6 mg PO DAILY [facility]; Protocol Last Admin: 03/23/18 08:40 Dose: Not Given Cyclobenzaprine HCl (Flexeril Tab*) 10 mg PO TID PRN PRN Reason: SPASMS Last Admin: 03/22/18 20:45 Dose: 10 mg Gabapentin (Neurontin Cap(*)) 400 mg PO TID [facility] Last Admin: 03/23/18 13:41 Dose: 400 mg Heparin Sodium (Porcine) (Heparin Vial(*)) 5,000 units SUBCUT Q8HR [facility] Last Admin: 03/23/18 13:41 Dose: 5,000 units Hydromorphone HCl (Dilaudid Inj*) 0.4 mg IV SLOW PU Q6H PRN PRN Reason: PAIN Sodium Chloride (Ns 0.9% 1000 Ml*) 1,000 mls @ 125 mls/hr IV PER RATE [facility] Last Admin: 03/23/18 02:05 Dose: 125 mls/hr Lactated Ringer's (Lactated Ringers 1000 Ml Bag*) 1,000 mls @ 125 mls/hr IV PER RATE [facility] Last Admin: 03/23/18 12:12 Dose: 125 mls/hr Lisinopril (Prinivil Tab*) 5 mg PO DAILY [facility] Last Admin: 03/23/18 08:41 Dose: Not Given Mesalamine (Mesalamine Dr Cap*) 400 mg PO TID [facility] Last Admin: 03/23/18 13:40 Dose: 400 mg Omeprazole (Prilosec Cap*) 20 mg PO DAILY@0730 [facility] Last Admin: 03/23/18 08:40 Dose: Not Given Ondansetron HCl (Zofran Inj*) 4 mg IV Q6H PRN PRN Reason: NAUSEA Last Admin: 03/23/18 07:35 Dose: 4 mg Sertraline HCl (Zoloft*) 100 mg PO BEDTIME [facility] Last Admin: 03/22/18 20:44 Dose: 100 mg Vital Signs - 8 hr 03/23/18 03/23/18 03/23/18 08:53 11:13 11:16 Temperature 98.4 F Pulse Rate 123 125 Respiratory 22 20 15 Rate Blood Pressure 147/97 128/104 (mmHg) O2 Sat by Pulse 96 95 Oximetry 03/23/18 03/23/18 03/23/18 11:22 11:23 11:25 Temperature Pulse Rate 123 121 121 Respiratory 19 15 18 Rate Blood Pressure 129/85 135/94 (mmHg) O2 Sat by Pulse 93 93 93 Oximetry 03/23/18 03/23/18 11:59 13:41 Temperature 98.6 F Pulse Rate 118 Respiratory 20 20 Rate Blood Pressure 144/92 (mmHg) O2 Sat by Pulse 98 Oximetry Oxygen Devices in Use Now: Nasal Cannula Result Diagrams: 03/22/18 12:18 03/23/18 06:22 Additional Lab and Data: Lab Results 03/22/18 03/22/18 03/22/18 Range/Units 12:18 12:18 12:18 WBC 9.4 (3.5-10.8) 10^3/ul RBC 5.30 (4.00-5.40) 10^6/ul Hgb 15.7 (14.0-18.0) g/dl Hct 45 (42-52) % MCV 86 (80-94) fL MCH 30 (27-31) pg MCHC 35 (31-36) g/dl RDW 15 (10.5-15) % Plt Count 239 (150-450) 10^3/ul MPV 8.7 (7.4-10.4) um3 Neut % (Auto) 83.1 H (38-83) % Lymph % (Auto) 6.9 L (25-47) % [place] % (Auto) 8.4 H (0-7) % Eos % (Auto) 1.0 (0-6) % Baso % (Auto) 0.6 (0-2) % Absolute Neuts (auto) 7.8 H (1.5-7.7) 10^3/ul Absolute Lymphs (auto) 0.6 L (1.0-4.8) 10^3/ul Absolute Monos (auto) 0.8 (0-0.8) 10^3/ul Absolute Eos (auto) 0.1 (0-0.6) 10^3/ul Absolute Basos (auto) 0.1 (0-0.2) 10^3/ul Absolute Nucleated RBC 0 10^3/ul Nucleated RBC % 0.2 INR (Anticoag Therapy) (0.77-1.02) Sodium 131 L (135-145) mmol/L Potassium 4.5 (3.5-5.0) mmol/L Chloride 100 L (101-111) mmol/L Carbon Dioxide 18 L (22-32) mmol/L Anion Gap 13 H (2-11) mmol/L BUN 19 (6-24) mg/dL Creatinine 1.17 (0.67-1.17) mg/dL Est GFR ( Amer) 76.9 (>60) Est GFR (Non-Af Amer) 63.6 (>60) BUN/Creatinine Ratio 16.2 (8-20) Glucose 183 H (70-100) mg/dL Lactic Acid 1.8 (0.5-2.0) mmol/L Calcium 9.5 (8.6-10.3) mg/dL Total Bilirubin 1.30 H (0.2-1.0) mg/dL AST 225 H (13-39) U/L ALT 291 H (7-52) U/L Alkaline Phosphatase 130 H (34-104) U/L Troponin I 0.00 (<0.04) ng/mL C-Reactive Protein 58.63 H (<8.01) mg/L Total Protein 7.7 (6.4-8.9) g/dL Albumin 4.4 (3.2-5.2) g/dL Globulin 3.3 (2-4) g/dL Albumin/Globulin Ratio 1.3 (1-3) Lipase < 10 L (11.0-82.0) U/L 03/22/18 Range/Units 12:19 WBC (3.5-10.8) 10^3/ul RBC (4.00-5.40) 10^6/ul Hgb (14.0-18.0) g/dl Hct (42-52) % MCV (80-94) fL MCH (27-31) pg MCHC (31-36) g/dl RDW (10.5-15) % Plt Count (150-450) 10^3/ul MPV (7.4-10.4) um3 Neut % (Auto) (38-83) % Lymph % (Auto) (25-47) % [place] % (Auto) (0-7) % Eos % (Auto) (0-6) % Baso % (Auto) (0-2) % Absolute Neuts (auto) (1.5-7.7) 10^3/ul Absolute Lymphs (auto) (1.0-4.8) 10^3/ul Absolute Monos (auto) (0-0.8) 10^3/ul Absolute Eos (auto) (0-0.6) 10^3/ul Absolute Basos (auto) (0-0.2) 10^3/ul Absolute Nucleated RBC 10^3/ul Nucleated RBC % INR (Anticoag Therapy) 1.14 H (0.77-1.02) Sodium (135-145) mmol/L Potassium (3.5-5.0) mmol/L Chloride (101-111) mmol/L Carbon Dioxide (22-32) mmol/L Anion Gap (2-11) mmol/L BUN (6-24) mg/dL Creatinine (0.67-1.17) mg/dL Est GFR ( Amer) (>60) Est GFR (Non-Af Amer) (>60) BUN/Creatinine Ratio (8-20) Glucose (70-100) mg/dL Lactic Acid (0.5-2.0) mmol/L Calcium (8.6-10.3) mg/dL Total Bilirubin (0.2-1.0) mg/dL AST (13-39) U/L ALT (7-52) U/L Alkaline Phosphatase (34-104) U/L Troponin I (<0.04) ng/mL C-Reactive Protein (<8.01) mg/L Total Protein (6.4-8.9) g/dL Albumin (3.2-5.2) g/dL Globulin (2-4) g/dL Albumin/Globulin Ratio (1-3) Lipase (11.0-82.0) U/L Assess/Plan/Problems-Billing Assessment: - Patient Problems (1) Ureteropelvic junction (UPJ) obstruction, left Current Visit: Yes Status: Acute Code(s): N13.5 - CROSSING VESSEL AND STRICTURE OF URETER W/O HYDRONEPHROSIS SNOMED Code(s): 84770774 Comment: -Spoke with Dr. Dunn this AM wtho then subsequently placed stent and pushed stones back up to kidneys to relieve obstruction a few hours prior -Will call Dr. Dunn for other questions if the need arises (2) Tachycardia Current Visit: Yes Status: Acute Code(s): R00.0 - TACHYCARDIA, UNSPECIFIED SNOMED Code(s): 3863329 Comment: #Post-op tachycardia: -Likely due to post-op pain -Will place pt on PRN Dilaudid and give a bolus and will continue watchful waiting -No CP/SOB, otherwise asymptomatic -Orthostatic VS done this AM and pt not found to be orthostatic (3) Abdominal pain Current Visit: Yes Status: Acute Code(s): R10.9 - UNSPECIFIED ABDOMINAL PAIN SNOMED Code(s): 20168195 Comment: -Possibly due to combination of left utero-pelvic junction kidney stones along with stato-hepatitis with improving LFTs -Continue watchful waiting (4) Hypertension Current Visit: Yes Status: Acute Code(s): I10 - ESSENTIAL (PRIMARY) HYPERTENSION SNOMED Code(s): 34401647 Comment: -Continue Amlodipine and Lisinopril -Will continue watchful waiting and control pain better to see if above meds will need to be adjusted (5) Ulcerative colitis Current Visit: Yes Status: Acute Code(s): K51.90 - ULCERATIVE COLITIS, UNSPECIFIED, WITHOUT COMPLICATIONS SNOMED Code(s): 69506235 Comment: -Continue Mesalamine (6) DVT prophylaxis Current Visit: Yes Status: Acute Code(s): GVO0951 - SNOMED Code(s): 490088707 Comment: -Continue Heparin SQ Status and Disposition: -For possible D/C in AM
--- NOTE | 2018-03-23 17:18 | OP ---
CC: Hardy Crespo MD; Dennis Agudelo MD * DATE OF OPERATION: 03/23/18 - ROOM #410 DATE OF : 56 SURGEON: Junior Pizano MD. ANESTHESIOLOGIST: Dr. Pruitt. ANESTHESIA: General. PRE-OP DIAGNOSES: 1. Left renal calculus. 2. Left ureteropelvic junction calculus. POST-OP DIAGNOSES: 1. Left renal calculus. 2. Left ureteropelvic junction calculus. OPERATIVE PROCEDURE: 1. Cystoscopy. 2. Left retrograde pyelogram. 3. Left ureteral calculus manipulation and left stent insertion. COMPLICATIONS: None. POSTOPERATIVE CONDITION: Stable. INDICATIONS: Homar Parra is a 58-year-old gentleman with a history of recurrent renal calculi. He was admitted for abdominal pain and on review of the CT, it appeared that we had a calculus at the ureteropelvic junction with an additional calculus in the renal pelvis. He has been brought in for urgent stent insertion to be followed by lithotripsy in the near future. STENT USED: 7-Mont[place] stent, left ureter. DESCRIPTION OF PROCEDURE: After induction of general anesthesia, the patient was placed in dorsal lithotomy position. Sequential compression devices were in place and functioning. Initial cystoscopy revealed a normal-appearing urethra and a moderately enlarged prostate. The bladder was examined. There is a small 5 mm benign-appearing angioma noted in the posterior wall on the right side. Guidewire was introduced into the left ureter. Retrograde pyelogram revealed mild fullness of the left collecting system. The filling defect could be noted at the ureteropelvic junction and at the renal pelvis consistent with the calculi. An open-ended catheter was advanced to the level of the ureteropelvic junction to gently manipulate the calculus back into the kidney. Once this was done, a 7-Mont[place] stent was introduced and positioned under fluoroscopy. He had good proximal and distal positioning obtained. The bladder was emptied. The patient tolerated the procedure satisfactorily and was transferred back to the recovery area in stable condition. [id number]/CPS #: [id number] MTDD
[2018-03-23] MEDS ORDERED: Iohexol 350* (CONTRAST) 500 ML MDV IV ONE (17:31)
[2018-03-23] MEDS: Sertraline* 100 MG TAB PO SCH (20:32)
--- NOTE | 2018-03-23 21:00 | RAD ---
EXAM: CT Angiography Chest With Intravenous Contrast CLINICAL HISTORY: 58 years old, male; Signs and symptoms; Other: Tachycardia; Additional info: Persistent tachycardia of unknown origin TECHNIQUE: Axial computed tomographic angiography images of the chest with intravenous contrast using pulmonary embolism protocol. All CT scans at this facility use at least one of these dose optimization techniques: automated exposure control; mA and/or kV adjustment per patient size (includes targeted exams where dose is matched to clinical indication); or iterative reconstruction. MIP reconstructed images were created and reviewed. Coronal and sagittal reformatted images were created and reviewed. CONTRAST: 84 mL of omni 350 administered intravenously. COMPARISON: DX - CXR CHEST PA LAT 2 VWS 05/29/2013 8:27 AM FINDINGS: Pulmonary arteries: No visible acute pulmonary embolism. Aorta: No aortic dissection. Lungs: There is bibasilar atelectatic change or scarring including possible scarring along the left major fissure No mass. Pleural space: Unremarkable. No significant effusion. No pneumothorax. Heart: Unremarkable. No cardiomegaly. No significant pericardial effusion. No evidence of RV dysfunction. Mediastinum: There is moderate hiatal hernia. Bones/joints: No acute fracture. No dislocation. Soft tissues: Unremarkable. Lymph nodes: There is mild mediastinal and bilateral hilar lymphadenopathy. Liver: There is diffuse fatty liver. There is hepatomegaly. Gallbladder and bile ducts: There are postoperative changes of cholecystectomy. Spleen: There is splenomegaly. Kidneys and ureters: There is a 4.3 cm simple cyst of the left kidney and there is a additional low-attenuation lesion in the left kidney which is too small to characterize. IMPRESSION: 1. There is moderate hiatal hernia. 2. There is mild mediastinal and bilateral hilar lymphadenopathy. 3. No visible acute pulmonary embolism. 4. No aortic dissection.
[2018-03-24] MEDS: Heparin VIAL(*) 5000 UNITS/ML VIAL (FIVE THOUSAND) SUBCUT SCH ×3 (06:12→22:34)
[2018-03-24 06:16] LABS: ABS Basophils 0 10^3/ul (0-0.2); ABS Eosinophils 0.1 10^3/ul (0-0.6); ABS Lymphocytes 0.5 10^3/ul (1.0-4.8); ABS Monocytes 0.5 10^3/ul (0-0.8); ABS Neutrophils 4.9 10^3/ul (1.5-7.7); ABS Nucleated RBC 0 10^3/ul; Eosinophil % 1.9 % (0-6); Hematocrit 41 % (42-52); Lymphocyte % 8.6 % (25-47); Mean Corpuscular HGB Conc 35 g/dl (31-36); Mean Corpuscular Hemoglobin 30 pg (27-31); Mean Corpuscular Volume 86 fL (80-94); Nucleated Red Blood Cells % 0.1; Platelet Count 162 10^3/ul (150-450); Red Cell Distribution Width 15 % (10.5-15); White Blood Count 6.1 10^3/ul (3.5-10.8)
[2018-03-24 06:35] LABS: EGFR Non-African American 93.2 (>60)
[2018-03-24] MEDS: Omeprazole CAP* 20 MG PO SCH (07:26)
--- NOTE | 2018-03-24 08:07 | RAD ---
INDICATION: Left-sided nephrolithiasis with stent insertion COMPARISON: [facility] March 31, 2017 TECHNIQUE: A single view of the abdomen is submitted. FINDINGS: Bones: There are no acute bony findings. Soft tissues: The soft tissues appear normal. The psoas margins are sharp. Bowel gas pattern: Normal Calcifications: There is lower pole left-sided nephrolithiasis. There are multiple closely opposed calcifications which collectively measure approximately 1 cm. Other: There is left ureteral stent in expected position. IMPRESSION: LEFT-SIDED NEPHROLITHIASIS. LEFT URETERAL STENT.
[2018-03-24] MEDS ORDERED: Magnesium Sulfate 2 GM IV* 2 GM/50 ML BAG IVPB ONE (09:00)
[2018-03-24] MEDS ORDERED: hydrOXYzine HCL TAB* 25 MG PO PRN (09:01)
[2018-03-24] MEDS: CMCS: Budesonide CAP(NF) 3 MG PO SCH (09:51)
[2018-03-24] MEDS: Gabapentin CAP(*) 400 MG PO SCH ×3 (09:52→22:16)
[2018-03-24] MEDS: amLODIPine TAB* 5 MG PO SCH (09:58)
[2018-03-24] MEDS ORDERED: SODIUM PHOSPHATE IVPB ONE (10:00)
[2018-03-24] MEDS ORDERED: NS IVPB ONE (10:00)
[2018-03-24] MEDS: Lisinopril TAB* 10 MG PO SCH (12:06)
[2018-03-24] MEDS: Metoprolol Tartrate TAB* 25 MG PO SCH ×2 (12:07→22:33)
--- NOTE | 2018-03-24 13:36 | PN ---
Subjective Date of Service: 03/24/18 Interval History: Pt seen and examined. Meds and labs reviewed. CC: Anxiety and intermittent chest discomfort, right-sided ROS: Denied ZAMORANO/dizziness, F/C, N/V, CP, SOB, increased cough, sputum production , abd pain, diarrhea, constipation, dysuria, myalgias, arthralgias, throat pain , and new skin lesions. The rest of the 14 point ROS are unremarkable. PHYSICAL EXAM: GEN APPEARANCE: Awake, not in acute distress HEENT: NC/AT, PERRLA, moist oral mucosa, (-) throat erythema NECK: Soft, supple, (-) cervical LAD, (-)JVD HEART: S1S2 WNL, RRR, No MRG CHEST: CTA, BL, GAE, No W/R/R ABD: Soft, ND/NT, NABS 4x Q EXT: No C/C/E SKIN: Warm to touch PSYCH: Axious, No active psychosis, hallucinations, depression, SI/HI Objective Active Medications: Acetaminophen (Tylenol Tab*) 650 mg PO Q6H PRN PRN Reason: PAIN Last Admin: 03/23/18 20:33 Dose: 650 mg Amlodipine Besylate (Norvasc Tab*) 5 mg PO DAILY [facility] Last Admin: 03/24/18 09:58 Dose: 5 mg Budesonide (Budesonide Cap(Nf)) 6 mg PO DAILY [facility]; Protocol Last Admin: 03/24/18 09:51 Dose: 6 mg Cyclobenzaprine HCl (Flexeril Tab*) 10 mg PO TID PRN PRN Reason: SPASMS Last Admin: 03/22/18 20:45 Dose: 10 mg Gabapentin (Neurontin Cap(*)) 400 mg PO TID [facility] Last Admin: 03/24/18 09:52 Dose: 400 mg Heparin Sodium (Porcine) (Heparin Vial(*)) 5,000 units SUBCUT Q8HR [facility] Last Admin: 03/24/18 06:12 Dose: 5,000 units Hydromorphone HCl (Dilaudid Inj1s*) 0.4 mg IV SLOW PU Q6H PRN PRN Reason: PAIN Last Admin: 03/23/18 16:17 Dose: 0.4 mg Hydroxyzine HCl (Atarax Tab*) 25 mg PO Q6H PRN PRN Reason: ANXIETY Last Admin: 03/24/18 09:51 Dose: 25 mg Lactated Ringer's (Lactated Ringers 1000 Ml Bag*) 1,000 mls @ 150 mls/hr IV PER RATE [facility] Last Admin: 03/24/18 07:25 Dose: 150 mls/hr Sodium Phosphate 45 mmole/ (Sodium Chloride) 265 mls @ 42 mls/hr IVPB ONCE ONE Stop: 03/24/18 16:18 Last Admin: 03/24/18 12:35 Dose: 42 mls/hr Lisinopril (Prinivil Tab*) 5 mg PO 2100 [facility] Mesalamine (Mesalamine Dr Cap*) 400 mg PO TID [facility] Metoprolol Tartrate (Lopressor Tab*) 25 mg PO BID [facility] Last Admin: 03/24/18 12:07 Dose: Not Given Omeprazole (Prilosec Cap*) 20 mg PO DAILY@0730 [facility] Last Admin: 03/24/18 07:26 Dose: 20 mg Ondansetron HCl (Zofran Inj*) 4 mg IV Q6H PRN PRN Reason: NAUSEA Last Admin: 03/23/18 16:20 Dose: 4 mg Sertraline HCl (Zoloft*) 100 mg PO BEDTIME [facility] Last Admin: 03/23/18 20:32 Dose: 100 mg Vital Signs - 8 hr 03/24/18 03/24/18 03/24/18 07:26 08:00 09:52 Temperature 99.5 F Pulse Rate 110 Respiratory 16 20 Rate Blood Pressure 157/96 (mmHg) O2 Sat by Pulse 97 96 Oximetry 03/24/18 03/24/18 11:22 11:40 Temperature 98.5 F Pulse Rate 107 Respiratory 18 20 Rate Blood Pressure 141/90 (mmHg) O2 Sat by Pulse 96 Oximetry Oxygen Devices in Use Now: None Result Diagrams: 03/24/18 05:41 03/24/18 05:41 Additional Lab and Data: Lab Results 03/22/18 03/22/18 03/22/18 Range/Units 12:18 12:18 12:18 WBC 9.4 (3.5-10.8) 10^3/ul RBC 5.30 (4.00-5.40) 10^6/ul Hgb 15.7 (14.0-18.0) g/dl Hct 45 (42-52) % MCV 86 (80-94) fL MCH 30 (27-31) pg MCHC 35 (31-36) g/dl RDW 15 (10.5-15) % Plt Count 239 (150-450) 10^3/ul MPV 8.7 (7.4-10.4) um3 Neut % (Auto) 83.1 H (38-83) % Lymph % (Auto) 6.9 L (25-47) % [place] % (Auto) 8.4 H (0-7) % Eos % (Auto) 1.0 (0-6) % Baso % (Auto) 0.6 (0-2) % Absolute Neuts (auto) 7.8 H (1.5-7.7) 10^3/ul Absolute Lymphs (auto) 0.6 L (1.0-4.8) 10^3/ul Absolute Monos (auto) 0.8 (0-0.8) 10^3/ul Absolute Eos (auto) 0.1 (0-0.6) 10^3/ul Absolute Basos (auto) 0.1 (0-0.2) 10^3/ul Absolute Nucleated RBC 0 10^3/ul Nucleated RBC % 0.2 INR (Anticoag Therapy) (0.77-1.02) Sodium 131 L (135-145) mmol/L Potassium 4.5 (3.5-5.0) mmol/L Chloride 100 L (101-111) mmol/L Carbon Dioxide 18 L (22-32) mmol/L Anion Gap 13 H (2-11) mmol/L BUN 19 (6-24) mg/dL Creatinine 1.17 (0.67-1.17) mg/dL Est GFR ( Amer) 76.9 (>60) Est GFR (Non-Af Amer) 63.6 (>60) BUN/Creatinine Ratio 16.2 (8-20) Glucose 183 H (70-100) mg/dL Lactic Acid 1.8 (0.5-2.0) mmol/L Calcium 9.5 (8.6-10.3) mg/dL Total Bilirubin 1.30 H (0.2-1.0) mg/dL AST 225 H (13-39) U/L ALT 291 H (7-52) U/L Alkaline Phosphatase 130 H (34-104) U/L Troponin I 0.00 (<0.04) ng/mL C-Reactive Protein 58.63 H (<8.01) mg/L Total Protein 7.7 (6.4-8.9) g/dL Albumin 4.4 (3.2-5.2) g/dL Globulin 3.3 (2-4) g/dL Albumin/Globulin Ratio 1.3 (1-3) Lipase < 10 L (11.0-82.0) U/L 03/22/18 Range/Units 12:19 WBC (3.5-10.8) 10^3/ul RBC (4.00-5.40) 10^6/ul Hgb (14.0-18.0) g/dl Hct (42-52) % MCV (80-94) fL MCH (27-31) pg MCHC (31-36) g/dl RDW (10.5-15) % Plt Count (150-450) 10^3/ul MPV (7.4-10.4) um3 Neut % (Auto) (38-83) % Lymph % (Auto) (25-47) % [place] % (Auto) (0-7) % Eos % (Auto) (0-6) % Baso % (Auto) (0-2) % Absolute Neuts (auto) (1.5-7.7) 10^3/ul Absolute Lymphs (auto) (1.0-4.8) 10^3/ul Absolute Monos (auto) (0-0.8) 10^3/ul Absolute Eos (auto) (0-0.6) 10^3/ul Absolute Basos (auto) (0-0.2) 10^3/ul Absolute Nucleated RBC 10^3/ul Nucleated RBC % INR (Anticoag Therapy) 1.14 H (0.77-1.02) Sodium (135-145) mmol/L Potassium (3.5-5.0) mmol/L Chloride (101-111) mmol/L Carbon Dioxide (22-32) mmol/L Anion Gap (2-11) mmol/L BUN (6-24) mg/dL Creatinine (0.67-1.17) mg/dL Est GFR ( Amer) (>60) Est GFR (Non-Af Amer) (>60) BUN/Creatinine Ratio (8-20) Glucose (70-100) mg/dL Lactic Acid (0.5-2.0) mmol/L Calcium (8.6-10.3) mg/dL Total Bilirubin (0.2-1.0) mg/dL AST (13-39) U/L ALT (7-52) U/L Alkaline Phosphatase (34-104) U/L Troponin I (<0.04) ng/mL C-Reactive Protein (<8.01) mg/L Total Protein (6.4-8.9) g/dL Albumin (3.2-5.2) g/dL Globulin (2-4) g/dL Albumin/Globulin Ratio (1-3) Lipase (11.0-82.0) U/L Assess/Plan/Problems-Billing Assessment: - Patient Problems (1) Tachycardia Current Visit: Yes Status: Acute Code(s): R00.0 - TACHYCARDIA, UNSPECIFIED SNOMED Code(s): 9799903 Comment: #Post-op tachycardia: -Pt still has persistent sinus tachycardia despite being well hydrated and pain being well controlled -However, he also complains of anxiety and could be related to this vs. cardiac given intermittent complains of CP, although the pain is more on the right of the sternum -Pt R/O yesterday for PE with CTA chest (-) for PE -Will place pt on Metoprolol to better control heart rate along with PRN Hydroxyzine -Will obtain 2D echo -For repeat EKG -For stress test in AM (2) Hypertension Current Visit: Yes Status: Acute Code(s): I10 - ESSENTIAL (PRIMARY) HYPERTENSION SNOMED Code(s): 38653952 Comment: -Continue Amlodipine and Lisinopril -Will add Metoprolol as described above -Will continue watchful waiting and control pain better to see if above meds will need to be adjusted (3) Ureteropelvic junction (UPJ) obstruction, left Current Visit: Yes Status: Acute Code(s): N13.5 - CROSSING VESSEL AND STRICTURE OF URETER W/O HYDRONEPHROSIS SNOMED Code(s): 66504372 Comment: -S/P L. uretereal stent placement and push-back of stones to kidneys to relieve obstruction a few hours prior -AXR shows yesterday shows ureteral stent in place -Will call Dr. Dunn for other questions if the need arises (4) Abdominal pain Current Visit: Yes Status: Acute Code(s): R10.9 - UNSPECIFIED ABDOMINAL PAIN SNOMED Code(s): 19377327 Comment: -Possibly due to combination of left utero-pelvic junction kidney stones along with stato-hepatitis with improving LFTs -Continue watchful waiting (5) Ulcerative colitis Current Visit: Yes Status: Acute Code(s): K51.90 - ULCERATIVE COLITIS, UNSPECIFIED, WITHOUT COMPLICATIONS SNOMED Code(s): 20483741 Comment: -Continue Mesalamine (6) DVT prophylaxis Current Visit: Yes Status: Acute Code(s): SLB0967 - SNOMED Code(s): 153934684 Comment: -Continue Heparin SQ Status and Disposition: -For possible D/C in AM
[2018-03-24] MEDS: Acetaminophen TAB* 325 MG PO PRN (14:08)
--- NOTE | 2018-03-24 16:18 | ECHO ---
Patient: JOSUÉ SHEPHERD [facility] Rec#: [id number] : 1960 Date: 03/24/2018 Age: 58y Height: 185.42 cm / 73.0 in Weight: 112.49 kg / 247.9 lbs Sex: M BSA: 2.36 Room#: [facility] Admit Date#: 03/22/2018 Type: Inpatient Referring: Dennis Agudelo Reading: Angel Sandoval DO Armament Repairer: Pam Lowery RDCS CC: Hardy Crespo MD Transthoracic Echocardiogram Indication: Abnormal EKG BP: 141/90 HR: 111 Rhythm: NSR with PVCs Findings History: HTN, TB, former smoker, hiatal hernia, hepatitis. Technical Comments: The study quality is fair. Completed at 1535. Left Ventricle: The left ventricular chamber size is normal. Mild concentric left ventricular hypertrophy is observed. There is normal left ventricular systolic function. The estimated ejection fraction is 55-60%. Normal left atrial size makes clinically significant diastolic dysfunction unlikely. Left Atrium: The left atrial chamber size is normal. Right Ventricle: The right ventricular chamber size and systolic function are within normal limits. Right Atrium: The right atrium is mildly dilated. Aortic Valve: The aortic valve is trileaflet. The aortic valve leaflets are mildly thickened. There is a trace of aortic regurgitation. There is no evidence of aortic stenosis. Mitral Valve: The mitral valve leaflets are mildly thickened. There is a trace of mitral regurgitation. There is no evidence of mitral stenosis. Tricuspid Valve: The tricuspid valve leaflets are normal. There is trace tricuspid regurgitation. Unable to estimate the right ventricular systolic pressure. There is no tricuspid stenosis. Pulmonic Valve: The pulmonic valve appears normal. There is a trace pulmonic regurgitation. There is no pulmonic stenosis. Pericardium: There is no significant pericardial effusion. Aorta: There is mild dilatation of the ascending aorta. There is mild dilatation of the aortic arch. There is mild dilatation of the aortic root. Pulmonary Artery: The main pulmonary artery is not well visualized. Venous: The venous system is not well visualized. The inferior vena cava is not visualized. Conclusions The left ventricular chamber size is normal. Mild concentric left ventricular hypertrophy is observed. There is normal left ventricular systolic function. The estimated ejection fraction is 55-60%. The left atrial chamber size is normal. The right ventricular chamber size and systolic function are within normal limits. No significant valvular abnormalities noted Unable to estimate the right ventricular systolic pressure. There is no significant pericardial effusion. There is mild to moderate dilatation of the aortic root. There is mild dilatation of the ascending aorta. None prior for comparison at time of interpretation. Measurements Name Value Normal Range RVIDd (AP) 2D 3.1 cm (0.9 - 2.6) RAd ISD 4CH 5 cm (3.4 - 4.9) RA (A4C)W 4.6 cm (2.9 - 4.6) IVSd (2D) 1.3 cm (0.6 - 1) LVPWd (2D) 1.3 cm (0.6 - 1) LVIDd (2D) 3.6 cm (3.6 - 5.4) LVIDs (2D) 1.7 cm - LV FS (2D) 53 % (25 - 45) Aortic Annulus 2.4 cm (1.4 - 2.6) Ao root diameter (2D) 4.4 cm (2.1 - 3.5) Ascending Ao 4.2 cm (2.1 - 3.4) Aortic arch 3.6 cm (1.8 - 3.4) LA dimension (AP) 2D 2.8 cm (2.3 - 3.8) LAd ISD 4CH 5.2 cm (2.9 - 5.3) LA ISD 4CH W 4.4 cm (2.5 - 4.5) Name Value Normal Range LA ESV SP 4CH (A/L) 48 ml - LA ESV SP 2CH (A/L) 49 ml - LA ESV BP (A/L) 50 ml - LA ESV BP (A/L) index 21 ml/m2 - LA ESV SP 4CH (MOD) 47 ml - LA ESV SP 2CH (MOD) 43 ml - Name Value Normal Range MV E-wave Vmax 0.59 m/sec - MV deceleration time 122.83 msec - MV A-wave Vmax 1.08 m/sec - MV E:A ratio 0.55 ratio - LV septal e' Vmax 0.06 m/sec - LV lateral e' Vmax 0.05 m/sec - LV E:e' septal ratio 9.83 ratio - LV E:e' lateral ratio 11.8 ratio - Name Value Normal Range AV Vmax 1.6 m/sec - AV VTI 24.5 cm - AV peak gradient 4.66 mmHg - AV mean gradient 9.69 mmHg - LVOT Vmax 1.4 m/sec - LVOT VTI 20.61 cm - LVOT peak gradient 7.65 mmHg - LVOT mean gradient 3.41 mmHg - AMANDA Vmax 0.82 m/sec - Name Value Normal Range PV Vmax 1.11 m/sec - PV peak gradient 5.01 mmHg -
[2018-03-24] MEDS ORDERED: Lisinopril TAB* 10 MG PO SCH (21:00)
[2018-03-24] MEDS: Ondansetron INJ* 2 MG/ML VIAL IV PRN (22:29)
[2018-03-24] MEDS: Sertraline* 100 MG TAB PO SCH (22:32)
[2018-03-25] MEDS: Heparin VIAL(*) 5000 UNITS/ML VIAL (FIVE THOUSAND) SUBCUT SCH (06:20)
[2018-03-25 07:28] VITALS: BP 128/105
--- NOTE | 2018-03-25 09:38 | RAD ---
Edited for charges. INDICATION: Intermittent chest discomfort. COMPARISON: There are no relevant prior studies available for comparison. Technique: A single day myocardial perfusion stress study was performed. Initially the resting study was performed. The patient was given an intravenous injection of 10.7 mCi of technetium 99m tetrofosmin and and the heart was imaged in multiple projections. The patient returned later in the day and under the direction of Dr. Bynum, the patient was given intervenous injection of Lexiscan. Subsequently the patient was given intravenous injection of 25.8 mCi of technetium 99m tetrofosmin and the heart was imaged in multiple projections. Images were reconstructed in the axial, sagittal and coronal planes and in a 3- D format. FINDINGS: There appears to be normal wall motion and myocardial thickening. The left ventricular ejection fraction was calculated to be 61%. Review of the images demonstrates decreased activity in the inferior wall on both the post pharmacologic stress and resting images which resolves on the attenuation corrected images most consistent with attenuation artifact. There is otherwise normal distribution of radiopharmaceutical. IMPRESSION: NO EVIDENCE FOR INFARCT OR ISCHEMIA. ASSESSMENT: Low risk. Based on imaging criteria from ACC/AHA 2002 Guideline Update for the Management of Patients With Chronic Stable Angina Table 23. Noninvasive Risk Stratification. MTDD
[2018-03-25] MEDS: amLODIPine TAB* 5 MG PO SCH (10:01)
[2018-03-25] MEDS: Gabapentin CAP(*) 400 MG PO SCH (10:02)
[2018-03-25] MEDS: Omeprazole CAP* 20 MG PO SCH (10:02)
[2018-03-25] MEDS: Metoprolol Tartrate TAB* 25 MG PO SCH (10:02)
[2018-03-25] MEDS: CMCS: Budesonide CAP(NF) 3 MG PO SCH (10:03)
[2018-03-25] MEDS ORDERED: Regadenoson* 0.4 MG/5 ML SYRINGE ONE (12:31)
[2018-03-25] MEDS ORDERED: Metoprolol Tartrate TAB* 50 mg PO SCH (21:00)
[2018-03-25] MEDS ORDERED: Lisinopril TAB* 10 MG PO SCH (21:00)
--- NOTE | 2018-03-26 07:04 | DS ---
CC: Dr. Cherry; Dr. Domenic Pond; Dr. Junior Pizano; Dr. Hardy Crespo * DISCHARGE SUMMARY: DATE OF ADMISSION: DATE OF DISCHARGE: 03/25/18 DISCHARGE DIAGNOSES: 1. Tachycardia, postoperative, likely either due to anxiety versus opiate withdrawal. 2. Hypertension, uncontrolled, improved. 3. Ureteropelvic junction obstruction, left, due to ureteral stones, status post ureteral stent placement with Dr. Pizano. 4. Abdominal pain secondary to above. 5. History of ulcerative colitis. DISCHARGE MEDICATIONS: 1. Tylenol 650 mg p.o. q.6 p.r.n. 2. Amlodipine 5 mg p.o. daily. 3. Budesonide 6 mg p.o. daily. 4. Cyclobenzaprine 10 mg p.o. t.i.d. 5. Gabapentin 400 mg p.o. t.i.d. 6. Hydroxyzine 25 mg p.o. q.h.s. 7. Probiotic capsule 1 cap p.o. daily. 8. Lisinopril 40 mg p.o. daily. 9. Mesalamine 1.5 g p.o. daily. 10. Metoprolol 50 mg p.o. b.i.d. 11. Omeprazole 20 mg p.o. daily. 12. Sertraline 100 mg p.o. q.h.s. HISTORY OF PRESENT ILLNESS/HOSPITAL COURSE: The patient is a 58-year-old gentleman with history of ulcerative colitis, renal calculi, and chronic neck and back pain, previously on p.o. opiates prior to his admission, who developed abdominal discomfort on Wednesday evening with nausea and vomiting. He also complained of some left flank pain along with his abdominal pain and had an abdominal and pelvic CT, which showed hepatosplenomegaly with an interval increase in the spleen compared to prior exam, hepatic steatosis, hiatal hernia, moderate stool with air-filled levels in the colon, and left ureteral stone measuring 0.9 cm and another one is a 0.5-cm stone. He was then taken by Dr. Pizano to the OR for ureteral stent placement, where he mentioned he pushed the stones back to the kidney. The obstruction was not seen on CT scan, but was shown on pyelogram. Subsequent abdominal x-rays shows ureteral stent placement in the appropriate place and the patient has been advised to follow up with Dr. Pizano to confirm and/or make an outpatient appointment. Postoperatively, however, the patient started having some sinus tachycardia in the rate of 140 to 150s and hence, the patient has been placed on IV fluids and his pain postoperatively has been well controlled and in fact, has not required any opiates. He has been ruled out for a PE with a CT angio being negative for any thromboembolism and also had a stress test given his uncontrolled hypertension, which showed low risk for actionable CAD. Upon review of his medication list, the patient mentioned that he follows with the pain clinic, but has not required opiates in the hospital and has also complained of anxiety. Therefore, some of his hypertension along with anxiety and sinus tachycardia, is likely due to some form of opiate withdrawal and he has been advised to stop his opiates given he seems to not need them despite the fact that he follows with pain management clinic as an outpatient. In addition, given his uncontrolled hypertension as well as his history of hypertension, it is possible that he may have hypertensive cardiomyopathy that may be concomitant with above. Hence, the stress test was done as described and a 2D echo was done, which showed no wall motion abnormalities and with an EF of 55% to 60% and there is some mild concentric left ventricular hypertrophy that is likely consistent with some form of uncontrolled hypertension. He had been advised to follow up and/or call his PCP within 3 days post discharge. He had been informed that his stress is low risk for any actionable coronary artery disease and to follow up with Dr. Pizano as discussed and to call [phone] to confirm/make an appointment and to discuss his hypertension and his heart rate control with his PCP. His medications can then be further adjusted as needed. If he is having any problems and/or his symptoms worsen, he was advised to call his PCP first to see if his concerns can be addressed in a timely manner. If not or if he has been advised to go to the ER due to scheduling issues alone, he was advised to see PCP, whether the case is an emergency and if it is not, to call [facility] for followup if this is deemed appropriate by both PCP and him. He was also advised to call [facility] if he is unable to touch base with his PCP. He was advised to call my office regarding any questions, concerns, or further clarifications regarding his discharge plans and prescriptions and to take his medications as prescribed. PHYSICAL EXAMINATION: Reveals the most recent vital signs of record with blood pressure of 105/68, 97 beats per minute heart rate, 16 per minute respiratory rate, saturating 94%, and temperature of 97.4 degrees Fahrenheit. General Appearance: The patient is awake, alert, and oriented x3, not in acute distress. HEENT: Normocephalic, atraumatic. PERRLA. Extraocular muscles intact. Negative for icterus. Moist oral mucosa. Negative throat erythema. Neck is soft, supple with no cervical lymphadenopathy. No JVD. Heart: S1, S2 within normal limits. Regular rate and rhythm. No murmurs, rubs, and gallops. Chest: Clear to auscultation bilaterally. Good air entry. No wheezes, rales, or rhonchi. Abdomen is soft, nondistended, nontender. Normoactive bowel sounds x4 quadrants. Extremities: No cyanosis, clubbing, or edema. Psychiatric : No active psychosis, depression, suicidal or homicidal ideations. Skin is warm to touch. TIME SPENT: The total time spent evaluating the patient, reviewing pertinent data, and appropriate documentation is 40 minutes. [id number]/CPS #: [id number] MTDD
== END 2018-03-25 15:20 | disposition home or self-care (01) | DRG 694 ==
LOC: ED 11:50 → MED 15:51 → OBSVTOIN 03-24 14:47
PROVIDERS: ADMIT Internal Medicine; ATTEND Student in an Organized Health Care Education/Training Program
PROC: BT1FZZZ Fluoroscopy of Left Kidney, Ureter and Bladder (ICD-10-PCS; 2018-03-23)
PROC: 4A02XM4 Measurement of Cardiac Total Activity, External Approach (ICD-10-PCS; 2018-03-23)
PROC: 0T778DZ Dilation of Left Ureter with Intraluminal Device, Via Natural or Artificial Opening Endoscopic (ICD-10-PCS; principal; 2018-03-23 17:00)
DX: N20.2 Calculus of kidney with calculus of ureter (principal); E87.1 Hypo-osmolality and hyponatremia; K51.90 Ulcerative colitis, unspecified, without complications; I97.89 Other postprocedural complications and disorders of the circulatory system, not elsewhere classified; G89.29 Other chronic pain; M54.2 Cervicalgia; M54.9 Dorsalgia, unspecified; I10 Essential (primary) hypertension; K44.9 Diaphragmatic hernia without obstruction or gangrene; K76.0 Fatty (change of) liver, not elsewhere classified; R16.2 Hepatomegaly with splenomegaly, not elsewhere classified; R74.0 Nonspecific elevation of levels of transaminase and lactic acid dehydrogenase [LDH]; E89.2 Postprocedural hypoparathyroidism; R00.0 Tachycardia, unspecified; M19.042 Primary osteoarthritis, left hand; M19.041 Primary osteoarthritis, right hand; M19.012 Primary osteoarthritis, left shoulder; M19.011 Primary osteoarthritis, right shoulder; G43.909 Migraine, unspecified, not intractable, without status migrainosus; F41.9 Anxiety disorder, unspecified; G62.9 Polyneuropathy, unspecified; N40.0 Benign prostatic hyperplasia without lower urinary tract symptoms; D18.03 Hemangioma of intra-abdominal structures; Z87.442 Personal history of urinary calculi; Z90.49 Acquired absence of other specified parts of digestive tract; Z88.6 Allergy status to analgesic agent; Z83.3 Family history of diabetes mellitus; Z80.0 Family history of malignant neoplasm of digestive organs; Z87.891 Personal history of nicotine dependence
CPT/HCPCS: 36415; 71275; 74018; 74177; 74420; 76705; 78452; 80053; 80074; 81003; 81015; 83516; 83605; 83690; 83735; 84100; 84484; 85025; 85610; 86140; 93005; 93017; 93306; 99283; A9270-GY; A9502; C1876; G0378; J1170; J1580; J1644; J2250; J2405; J2704; J2785; J3010; J3475; Q9967

== ENCOUNTER 2018-04-04 09:22 | Day surgery (SDC) | payer MEDICARE ==
[~2018-04-04 09:22] MED LIST changes: +Buffered Lidocaine 0.9% SYRIN* 5 ML/SYR SYRINGE INTRADERM ONE; +Famotidine IV* 10 MG/ML 2 ML (20 mg) IV ONE; -Ketorolac INJ* 30 MG/ML 1 ML VIAL IV ONE; -NS 0.9% 1000 ML* 1,000 ML IV ONE; -Ondansetron INJ* 2 MG/ML VIAL IV ONE
[2018-04-04] MEDS ORDERED: Famotidine IV* 10 MG/ML 2 ML (20 mg) ONE (10:29)
[2018-04-04] MEDS ORDERED: cefTRIAXone(*) 2 GM ADDV.VIAL IVPB ONE (10:29)
--- NOTE | 2018-04-04 11:47 | RAD ---
Indication: Shock wave lithotripsy. Comparison: March 23, 2018 Technique: Supine view of the abdomen. Report: LEFT ureteral stent in place. No significant change in approximate 1 cm maximum dimension stone at the lower pole of the LEFT kidney. No suspicious calcifications evident along the course of the ureteral stent. Innumerable pelvic phleboliths and course prostate calcifications noted. Unremarkable soft tissue contours. Gallbladder fossa surgical clips. IMPRESSION: #. LEFT ureteral stent in place. No significant change in approximate 1 cm maximum dimension stone at the lower pole of the LEFT kidney.
[2018-04-04] MEDS ORDERED: Lidocaine 2% PF * 5 ML VIAL ONE (13:37)
[2018-04-04] MEDS ORDERED: Midazolam* 1 MG/ML 5 ML VIAL (5 MG) ONE (13:37)
[2018-04-04] MEDS ORDERED: Propofol* 10 MG/ML 20 ML BTL IV PUSH ONE (13:37)
[2018-04-04] MEDS ORDERED: Ketorolac INJ* 30 MG/ML 1 ML VIAL ONE (13:37)
[2018-04-04] MEDS ORDERED: Dexamethasone IV* 4 MG/ML 1 ML (4 MG) ONE (13:37)
[2018-04-04] MEDS ORDERED: fentaNYL* 50 MCG/ML 2 ML VIAL (100 MCG VIAL) ONE (13:37)
[2018-04-04] MEDS ORDERED: Ondansetron INJ* 2 MG/ML VIAL ONE (13:37)
[2018-04-04] MEDS ORDERED: KETAMINE HCL* 50 MG/ML 10 ML VIAL ONE (13:37)
[2018-04-04] MEDS ORDERED: Furosemide IV* 10 MG/ML 2 ML VIAL (20 MG) ONE (14:26)
[2018-04-04 16:08] VITALS: BP 135/98
--- NOTE | 2018-04-05 01:00 | OP ---
CC: Dr. Hardy Crespo * DATE OF OPERATION: 04/04/18 - [facility] DATE OF : 56. SURGEON: Junior Pziano M.D. ANESTHESIOLOGIST: Dr. Shaw. ANESTHESIA: General. PRE-OP DIAGNOSIS: Left renal calculi. POST-OP DIAGNOSIS: Left renal calculi. OPERATIVE PROCEDURE: Shockwave lithotripsy of left renal calculi. COMPLICATIONS: None. POSTOPERATIVE CONDITION: Stable. INDICATIONS: Homar Parra is a 58-year-old gentleman who had undergone left stent insertion because of calculi at the left ureteropelvic junction with associated left-sided pain. DESCRIPTION OF PROCEDURE: After induction of general anesthesia, the patient was placed on the lithotripsy table in supine position. The calculi, which were now in the lower pole of the left kidney were identified using fluoroscopy. Shockwave lithotripsy was commenced at a rate of 90 shocks per minute. After the initial 300 shocks, there was a brief pause in lithotripsy for several minutes in an effort to minimize any potential trauma to the kidney. Lithotripsy was then resumed and a total of 1000 shocks were delivered. The patient tolerated the procedure satisfactorily and was transferred back to the recovery area in stable condition. [id number] #: [id number] MTDD
== END 2018-04-04 16:18 | disposition home or self-care (01) ==
LOC: OR 09:22
PROVIDERS: ATTEND Urology
DX: N20.0 Calculus of kidney (principal); Z87.891 Personal history of nicotine dependence; I10 Essential (primary) hypertension; K51.90 Ulcerative colitis, unspecified, without complications; K21.9 Gastro-esophageal reflux disease without esophagitis; K76.0 Fatty (change of) liver, not elsewhere classified; E87.1 Hypo-osmolality and hyponatremia; R16.2 Hepatomegaly with splenomegaly, not elsewhere classified
CPT/HCPCS: 74018; J0696; J1100; J1885; J1940; J2250; J2405; J2704; J3010